=== PATIENT | male | born 1975 | race Caucasian/White ===

== ENCOUNTER 2020-07-23 17:15 | Outpatient (REF) | payer OTHER, SELFPAY ==
[2020-07-23 17:39] LABS: Glucose Urine UA NEG (NEG); Leukocyte Esterase Urine NEG (NEG); Nitrite Urine NEG (NEG); Specific Gravity - Urine 1.025 (1.005-1.025); Urine Blood NEG (NEG); Urine Ketones NEG (NEG); Urine Protein NEG (NEG-TRACE)
[2020-07-23 17:45] LABS: Appearance Urine CLEAR; Color Urine YELLOW
== END 2020-07-23 17:16 | disposition home or self-care (01) ==
LOC: HO.LNP 17:15
PROVIDERS: Visit Provider Family Medicine
DX: Z00.00 Encounter for general adult medical examination without abnormal findings (principal); R30.0 Dysuria
CPT/HCPCS: 81003; 87086; 87088

== ENCOUNTER 2020-09-18 07:13 | Outpatient (REF) | payer OTHER, SELFPAY ==
[2020-09-18 11:18] LABS: Alanine Aminotransferase 39 U/L (0-40); Albumin Level 4.3 g/dL (3.5-5.0); Alkaline Phosphatase 121 U/L (39-117); Anion Gap 11 (12-20); Aspartate Amino Transferase 25 U/L (5-37); Bilirubin Total 0.5 mg/dL (0.0-1.0); Blood Urea Nitrogen 10 mg/dL (9-16); Calcium 9.4 mg/dL (8.4-10.2); Carbon Dioxide 32 mmol/L (22-29); Chloride 101 mmol/L (96-108); Cholesterol 158 mg/dL; Estimated Glomerular Filt Rate > 60; Glucose Fasting 96 mg/dL (60-99); HDL Cholesterol 39 mg/dL; LDL Cholesterol Calculated 98 mg/dl; Potassium 3.8 mmol/L (3.3-5.1); Sodium 140 mmol/L (135-145); Total Protein 7.1 g/dL (6.5-8.0); Triglycerides 109 mg/dL
[2020-09-18 11:40] LABS: TSH reflex Free T4 0.48 uIU/mL (0.32-4.0)
== END 2020-09-18 07:14 | disposition home or self-care (01) ==
LOC: HO.WFDLDS 07:13
PROVIDERS: Visit Provider Family Medicine
DX: Z00.00 Encounter for general adult medical examination without abnormal findings (principal)
CPT/HCPCS: 36415; 80053; 80061; 84443

== ENCOUNTER 2020-12-18 14:55 | Outpatient (REF) | payer OTHER, SELFPAY ==
[2020-12-18 16:57] LABS: Appearance Urine HAZY; Color Urine DK YELLOW; Glucose Urine UA NEG (NEG); Leukocyte Esterase Urine 1+ (NEG); Nitrite Urine NEG (NEG); Urine Blood NEG (NEG); Urine Ketones NEG (NEG); Urine Protein NEG (NEG-TRACE)
[2020-12-18 17:32] LABS: Prostate Specific Antigen Scr 0.08 ng/mL (<0.05-4.0)
[2020-12-18 17:46] LABS: Amorphous Sediment Urine 2+ /LPF; Bacteria Urine 2+ /LPF; Mucus Urine 1+ /LPF; Squamous Epithelial Cell Urine 2+ /LPF
[2020-12-18 17:47] LABS: RBC Urine 0 /HPF (0)
== END 2020-12-18 14:56 | disposition home or self-care (01) ==
LOC: HO.HMGCLDS 14:55
PROVIDERS: PCP Family Medicine; Visit Provider Family Medicine
DX: Z12.5 Encounter for screening for malignant neoplasm of prostate (principal); Z13.9 Encounter for screening, unspecified
CPT/HCPCS: 36415; 81001; 84153

== ENCOUNTER 2020-12-19 18:18 | Outpatient (REF) | payer OTHER, SELFPAY ==
[2020-12-19 18:32] LABS: Appearance Urine CLEAR; Color Urine YELLOW; Glucose Urine UA NEG (NEG); Leukocyte Esterase Urine NEG (NEG); Nitrite Urine NEG (NEG); PH 8.5 (5.0-8.0); Urine Blood NEG (NEG); Urine Ketones NEG (NEG); Urine Protein TRACE MG/DL (NEG-TRACE)
== END 2020-12-19 18:19 | disposition home or self-care (01) ==
LOC: HO.LNP 18:18
PROVIDERS: Visit Provider Family Medicine
DX: Z00.00 Encounter for general adult medical examination without abnormal findings (principal); R30.0 Dysuria; R39.11 Hesitancy of micturition
CPT/HCPCS: 81003; 87086; 87088

== ENCOUNTER 2022-11-18 16:01 | Outpatient (AMB) | payer OTHER, SELFPAY ==
[2022-11-18 16:08] VITALS: BP 130/78; PULSE 71; TEMP 36.6; O2SAT 93; BMI 41.7
--- NOTE | 2022-11-18 16:08 | A.OFFPC_ITS ---
Vital Signs 11/18/22 16:08 Height 5 ft 10 in Weight 291 lb BMI 41.7 BP 130/78 Blood Pressure Location Lt brachial Position Sitting Pulse 71 Pulse Source Pulse Oximeter Temp 97.9 F Temp Source Oral Pulse Oximetry (%) 93 Oxygen Delivery Method Room Air Oxygen Flow Rate 97.9 Intake Visit Reasons: CPE with f/u labs and health maintenance Intake Note: Patient is here for his physical today. He's concerned about shortness of breath, and raspy breath. Allergies aspirin [ASPIRIN] Allergy (Unknown, Verified 11/18/22 16:13) HIVES/SWOLLEN THROAT, hives ibuprofen Allergy (Unknown, Verified 11/18/22 16:13) hives naproxen [Aleve] Allergy (Unknown, Verified 11/18/22 16:13) hives penicillin V Allergy (Unknown, Verified 11/18/22 16:13) hives propranolol Allergy (Unknown, Verified 11/18/22 16:13) erectile dysfunction NSAIDS Allergy (Unknown, Uncoded 11/18/22 16:13) Unknown Tobacco use date assessed: 11/18/22 Dental Screening Dental Screen Date: 11/18/22 Did you have a dental visit in the last 12 months?: No Did you have a dental problem in the last 6 months where you did not have access to dental care?: No Was dental information given to patient?: Patient declined HPI CPE with f/u labs and health maintenance HPI Details 46 y/o male presents for a CPE with f/u labs and health maintenance. No recent labs to review. Pt reports he is concerned about shortness of breath today. Pt reports hx of smoking. Pt reports GERD more than once a week. [facility] Surgical History Cholesteatoma of attic, right ear History of mastoidectomy History of tonsillectomy and adenoidectomy History of tympanoplasty of left ear Social History Housing: House Alcohol intake: never Patient Tobacco Use Status: Current everyday Tobacco user Cigarette Packs Per Day: 1 e-Cigarette/Vaping Use: Never Used Second Hand Smoke Exposure: No service: No Current occupational status: employed Current occupational exposures/hazards: No Cognitive needs: No Hearing needs: No Vision needs: No Questionnaire Thrive Questionnaire Date Thrive assessed: 12/19/20 MONA-7 AMB Questionnaire MONA-7 Date MONA - 7 assessed: 12/19/20 Source: Developed by Drs. Melo Sanches, Candice Tapia, Anibal Peng and colleagues, with an educational eboni from [employer]. Review of Systems Const Denies chills, Denies fatigue, Denies fever(s), Denies headache(s) and Denies weakness Eyes Denies change in vision ENT Denies dizziness, Denies headache(s), Denies hearing loss, Denies nasal congestion, Denies sinus pain, Denies sinus pressure and Denies sore throat Card Reports dyspnea Resp Reports dyspnea and Denies wheezing GI Denies abdominal pain, Denies melena, Denies hematochezia, Denies change in bowel habits, Denies dyspepsia and Denies nausea Denies hematuria and Denies dysuria Musc Denies abnormal gait, Denies myalgias, Denies arthralgias, Denies numbness and Denies tingling Skin/Breast Denies rash, Denies unusual bruising and Denies wounds Neuro Denies abnormal gait, Denies dizziness, Denies headache(s), Denies memory loss, Denies numbness, Denies Sensory deficit (Neuro), Denies tingling and Denies weakness Psych Denies anxiety, Denies depression and Denies memory loss Endo Denies cold intolerance, Denies fatigue, Denies heat intolerance, Denies polydipsia and Denies polyuria Deep/Lymph Denies easy bleeding and Denies easy bruising Aller/Immun Denies wheezing Physical exam (Primary Care) Vital Signs: Last Vital Signs Temp 97.9 F 11/18/22 16:08 Pulse 71 11/18/22 16:08 BP 130/78 11/18/22 16:08 Pulse Ox 93 11/18/22 16:08 Oxygen Delivery Method Room Air 11/18/22 16:08 Oxygen Flow Rate 97.9 11/18/22 16:08 BMI result Body Mass Index 41.7 Tobacco/Smoking Status: Tobacco use Status Tobacco use date assessed 11/18/22 11/18/22 16:22 Patient Tobacco Use Status Current everyday Tobacco 11/18/22 16:22 e-Cigarette/Vaping Use Never Used 11/18/22 16:22 Thrive Assessment: Date of Thrive Assessment Date Thrive assessed 12/19/20 11/18/22 16:22 Const General: no acute distress, well developed, alert and awake Nutritional Appearance: well nourished Orientation/consciousness: patient oriented x3 HENMT Head: Yes normocephalic and Yes atraumatic Ears: hearing grossly normal bilaterally and TM's normal bilaterally General nose exam: Normal external nose present and Normal nares present Mouth: Normal oral and palatal mucosa present and moist mucous membranes Teeth and gingiva: dentition normal Throat: Yes posterior oropharynx normal Eyes General: appearance normal, both eyes and all related structures Pupils: Equal, round and reactive pupils present and Pupil accommodation reflex normal EOM: EOMs intact bilaterally Neck Neck: Yes normal visual inspection, Yes no lymphadenopathy and Yes trachea midline Thyroid: Thyroid normal Carotids: no bruits Lymphatic: no lymphadenopathy noted Chest Chest palpation & inspection: normal inspection of the chest Resp Other: wheezing bilaterally and pops/squeaks at right base Effort & Inspection: normal respiratory effort Cardio Rate: regular rate Rhythm: regular rhythm Heart sounds: S1 normal heart sound present, S2 normal heart sound present, no gallops, no murmurs and no rubs Bruits: no abdominal aortic bruits and no carotid bruits GI Palpation (GI): No Abdominal aortic bruit present, Soft to palpation, nontender, No hepatosplenomegaly present and No Rebound tenderness present Auscultation: normal bowel sounds General: Yes no CVA tenderness Back/Spine/Pelvis Back: no CVA tenderness Cervical Spine: cervical ROM normal and No Cervical spine tenderness Thoracic/Lumbar Spine: thoraco-lumbar ROM normal, No pain with thoraco-lumbar ROM, No thoracic spinal tenderness and No lumbar spinal tenderness Skin Lesions: no lesions Rashes: no rashes Trauma: no lacerations or abrasions Wounds: no wounds Nails: normal Neuro General: patient oriented x3 Cranial nerves: Yes Equal, round and reactive pupils present Cognition (Neuro): normal cognition Gait exam (Neuro): Normal gait present Motor exam (neuro): 5/5 motor strength present throughout Sensory Exam: No Sensory deficit (Neuro) Deep tendon reflexes (DTR's): Right patellar reflex intensity grade: 2+ and Left patellar reflex intensity grade: 2+ Extrem General: Yes normal to inspection and No edema Psych Appearance: grossly normal Affect: normal affect Attitude: cooperative Thought process: Normal thought process present Assessment and Plan Assessment & Plan (1) Adult general medical exam: Code(s): Z00.00 - Encounter for general adult medical examination without abnormal findings Plan: 46-year-old male presents for complete physical exam (2) Shortness of breath: Code(s): R06.02 - Shortness of breath Plan: Recent worsening shortness of breath and cough. Lung auscultation reveals wheezing bilaterally and pops/squeaks at right base Likely asthma exacerbation but concern for pneumonia Checking chest x-ray Refilled his ProAir Sending a script for a Z-Elliott as well as 5 day course of prednisone. He can call me if not improving. (3) Essential hypertension: Code(s): I10 - Essential (primary) hypertension Plan: Blood pressure is controlled. Goal is less than 140/90 Continue hydrochlorothiazide which also helps with lower extremity edema (4) GERD (gastroesophageal reflux disease): Code(s): K21.9 - Gastro-esophageal reflux disease without esophagitis Plan: Getting symptoms more than once a week. Starting omeprazole and I am referring him to Gastroenterology (5) History of smoking: Code(s): Z87.891 - Personal history of nicotine dependence Plan: Advised cessation Checking chest x-ray (6) Screening for prostate cancer: Code(s): Z12.5 - Encounter for screening for malignant neoplasm of prostate Plan: Check PSA (7) Screening for colon cancer: Code(s): Z12.11 - Encounter for screening for malignant neoplasm of colon Plan: Due for 1st screening colonoscopy-referred to GI Orders: Orders Comprehensive [place]. Panel Fast Today Z00.00 - Encounter for general adult medical examination without abnormal findings Lipid Panel Today Z00.00 - Encounter for general adult medical examination without abnormal findings Prostate Specific Antigen Scr Today Z12.5 - Encounter for screening for malignant neoplasm of prostate TSH reflex Free T4 Today Z00.00 - Encounter for general adult medical examination without abnormal findings Microalbumin, Random (w Creat) Today I10 - Essential (primary) hypertension UA and rflx microscopic Today Z00.00 - Encounter for general adult medical examination without abnormal findings XR chest 2V Today R06.02 - Shortness of breath Referrals Gastroenterology Referral K21.9 - Gastro-esophageal reflux disease without esophagitis, Z12.11 - Encounter for screening for malignant neoplasm of colon Medications: New azithromycin (Zithromax Z-Elliott) take 500 mg today (day 1), then 250 mg for 4 days (days 2-5) PO 6 tabs 0RF 5 days prednisone 40 mg (2 x 20 mg) PO DAILY 10 tabs 0RF 5 days albuterol sulfate 90 mcg/actuation (ProAir HFA) 2 puffs inhalation Q4-6H PRN 8.5 grams 3RF shortness of breath or wheezing 30 days Coding Level of Care Code Est Pt Level 3 (41147) Est Pt Prev Care 40-64y(52996) Diagnoses Adult general medical exam Z00.00 Shortness of breath R06.02 Essential hypertension I10 GERD (gastroesophageal reflux disease) K21.9 History of smoking Z87.891 Screening for prostate cancer Z12.5 Screening for colon cancer Z12.11
== END 2022-11-18 17:03 | disposition home or self-care (01) ==
PROVIDERS: Visit Provider Family Medicine
DX: Z00.00 Encounter for general adult medical examination without abnormal findings (principal); R06.02 Shortness of breath; I10 Essential (primary) hypertension; K21.9 Gastro-esophageal reflux disease without esophagitis; Z87.891 Personal history of nicotine dependence
CPT/HCPCS: 99213; 99396

== ENCOUNTER 2022-11-21 09:09 | Outpatient (REF) | payer OTHER, SELFPAY ==
--- NOTE | ~2022-11-21 | XR_ITS ---
EXAMINATION: XR CHEST CLINICAL INFORMATION: Shortness of breath, cough COMPARISON: Chest of 06/04/2014 TECHNIQUE: 2 views of the chest were obtained. FINDINGS: Lung volumes are low. There is no gross pneumothorax. Heart size is normal. Degenerative changes in the thoracic spine. No pleural effusion. Streaky opacities at the left lung base may represent atelectasis and/or pneumonia. XR/XR chest 2V IMPRESSION: Streaky opacities at the left lung base may represent atelectasis and/or pneumonia. Low lung volumes. Recommend follow-up imaging in 4-6 weeks to confirm resolution and exclude underlying pathology. This study was presented to 11/23/2022 11/15/2022 at 12:19 PM for interpretation. PSA staff will provide results to referring provider at this time.
[2022-11-21 10:23] LABS: Appearance Urine Turbid; Color Urine Dark Yellow; Glucose Urine UA Negative (Negative); Leukocyte Esterase Urine Moderate (2+) (Negative); Nitrite Urine Negative (Negative); PH 6.5 (5.0-9.0); Specific Gravity - Urine >= 1.030 (1.005-1.025); UMIC TRIGGER UA YES; Urine Blood Negative (Negative); Urine Ketones Trace mg/dL (Negative); Urine Protein 30 (1+) mg/dL (Neg-Trace)
[2022-11-21 10:42] LABS: Creatinine Urine 208.88 mg/dL; Microalbum/Creatinine Ratio Ur 10.5 ug/mg cr (<30)
[2022-11-21 10:50] LABS: Alanine Aminotransferase 24 U/L (0-40); Albumin Level 4.4 g/dL (3.5-5.0); Alkaline Phosphatase 103 U/L (39-117); Anion Gap 13 (12-20); Aspartate Amino Transferase 16 U/L (5-37); Bilirubin Total 0.6 mg/dL (0.0-1.0); Blood Urea Nitrogen 11 mg/dL (9-16); Calcium 9.8 mg/dL (8.4-10.2); Carbon Dioxide 31 mmol/L (22-29); Chloride 102 mmol/L (96-108); Cholesterol 139 mg/dL (<200); Estimated Glomerular Filt Rate > 60; Glucose Fasting 90 mg/dL (60-99); HDL Cholesterol 40 mg/dL (>40); LDL Cholesterol Calculated 88 mg/dL (<100); Potassium 3.6 mmol/L (3.3-5.1); Sodium 142 mmol/L (135-145); Total Protein 7.8 g/dL (6.5-8.0); Triglycerides 55 mg/dL (<150)
[2022-11-21 10:58] LABS: Bacteria Urine 4+ (None Seen); Hyaline Casts Urine 0-2 /LPF (0-2); RBC Urine 0-2 /HPF (0-2); Squamous Epithelial Cell Urine 0-2 /HPF (0-2)
[2022-11-21 11:06] LABS: Prostate Specific Antigen Scr < 0.10 ng/mL (<0.05-4.0)
== END 2022-11-21 09:10 | disposition home or self-care (01) ==
LOC: HO.LAB 09:09
PROVIDERS: PCP Family Medicine; Visit Provider Family Medicine
DX: Z00.00 Encounter for general adult medical examination without abnormal findings (principal); Z12.5 Encounter for screening for malignant neoplasm of prostate; R06.02 Shortness of breath; I10 Essential (primary) hypertension
CPT/HCPCS: 36415; 71046; 80053; 80061; 81001; 82043; 84153; 84439; 84443

== ENCOUNTER 2022-12-08 13:39 | Outpatient (AMB) | payer OTHER, SELFPAY ==
--- NOTE | 2022-12-08 13:05 | MHC.PC.OV ---
Intake Visit Reasons: f/u CPE-labs and chest x-ray Intake Note: Patient reports he has a telehealth scheduled to discuss labs and most recent chest xray. [employer] Required: No Accompanied by: Self / Same As Patient Allergies aspirin [ASPIRIN] Allergy (Unknown, Verified 12/08/22 13:09) HIVES/SWOLLEN THROAT, hives ibuprofen Allergy (Unknown, Verified 12/08/22 13:09) hives naproxen [Aleve] Allergy (Unknown, Verified 12/08/22 13:09) hives penicillin V Allergy (Unknown, Verified 12/08/22 13:09) hives propranolol Allergy (Unknown, Verified 12/08/22 13:09) erectile dysfunction NSAIDS Allergy (Unknown, Uncoded 11/18/22 16:13) Unknown Tobacco use date assessed: 11/18/22 HPI f/u CPE-labs and chest x-ray HPI Details 46 y/o male presents to f/u CPE-labs and chest x-ray. Had complaints of a cough last office visit. He reports cough has significantly improved after antibiotic treatment and prednisone. Labs were drawn 11/21/22. Reviewed labs with pt. Triglycerides 55. TC 139. LDL 88. HDL 40. TSH low at 0.20. PFSH Surgical History Cholesteatoma of attic, right ear History of mastoidectomy History of tonsillectomy and adenoidectomy History of tympanoplasty of left ear Social History Housing: House Alcohol intake: never Patient Tobacco Use Status: Current everyday Tobacco user Cigarette Packs Per Day: 1 e-Cigarette/Vaping Use: Never Used Second Hand Smoke Exposure: No service: No Current occupational status: employed Current occupational exposures/hazards: No Cognitive needs: No Hearing needs: No Vision needs: No Questionnaire Thrive Questionnaire Date Thrive assessed: 12/19/20 MONA-7 AMB Questionnaire MONA-7 Date MONA - 7 assessed: 12/19/20 Source: Developed by Drs. Melo Sanches, Candice Tapia, Anibal Peng and colleagues, with an educational eboni from [employer]. Review of Systems Const Denies chills, Denies fatigue, Denies fever(s), Denies headache(s) and Denies weakness ENT Denies dizziness and Denies headache(s) Card Denies dyspnea Resp Denies cough, Denies dyspnea, Denies wheezing and Denies other (shortness of breath) Musc Denies numbness and Denies tingling Neuro Denies dizziness, Denies headache(s), Denies numbness, Denies tingling and Denies weakness Psych Denies anxiety and Denies depression Endo Denies fatigue Aller/Immun Denies wheezing Physical exam (Primary Care) Tobacco/Smoking Status: Tobacco use Status Tobacco use date assessed 11/18/22 12/08/22 13:09 Patient Tobacco Use Status Current everyday Tobacco 12/08/22 13:09 e-Cigarette/Vaping Use Never Used 12/08/22 13:09 Thrive Assessment: Date of Thrive Assessment Date Thrive assessed 12/19/20 12/08/22 13:09 Telehealth Telehealth Location of provider rendering services: practice address Location of patient: other Patient Identification confirmed using: Name, : Yes Telehealth method: voice only Patient verbally consented to treatment: Yes Patient verbally consented to billing insurance company: Yes Patient informed of any privacy concerns related to visit: Yes Minutes spent on Phone/Video with Pt.: 7 Assessment and Plan Assessment & Plan (1) Cough: Code(s): R05.9 - Cough, unspecified Plan: Greatly improved and continues to improve after treatment with prednisone. Chest x-ray did show likely pneumonia He will continue to monitor. If this does not completely resolve or if begins to worsen, he will let me know Would repeat chest x-ray and start antibiotic course again. (2) Shortness of breath: Code(s): R06.02 - Shortness of breath Plan: As above (3) Low TSH level: Code(s): R79.89 - Other specified abnormal findings of blood chemistry Plan: Mildly low TSH and patient had had his blood drawn while he was still sick with pneumonia. Likely transient. He will have his blood drawn prior to next visit and we can follow-up on this. Orders: Orders Thyroid Stimulating Hormone Today E03.9 - Hypothyroidism, unspecified, R79.89 - Other specified abnormal findings of blood chemistry Free T4 (Free Thyroxine) Today E03.9 - Hypothyroidism, unspecified, R79.89 - Other specified abnormal findings of blood chemistry Triiodothyronine T3 Total Today E03.9 - Hypothyroidism, unspecified, R79.89 - Other specified abnormal findings of blood chemistry Basic Metabolic Panel Today R79.89 - Other specified abnormal findings of blood chemistry, Z00.00 - Encounter for general adult medical examination without abnormal findings Coding Level of Care Code Tele Est Pt Level 2 (57289) Diagnoses Cough R05.9 Shortness of breath R06.02 Low TSH level R79.89
== END 2022-12-08 14:21 | disposition home or self-care (01) ==
PROVIDERS: PCP Family Medicine; Visit Provider Family Medicine
DX: R05.9 Cough, unspecified (principal); R06.02 Shortness of breath; R79.89 Other specified abnormal findings of blood chemistry
CPT/HCPCS: 99212

== ENCOUNTER 2023-03-26 14:47 | Outpatient (AMB) | payer OTHER, SELFPAY ==
[2023-03-26 14:54] VITALS: BP 138/78; PULSE 71; O2SAT 98; BMI 43.6
--- NOTE | 2023-03-26 14:54 | A.OFFPC_ITS ---
Vital Signs 03/26/23 14:54 Height 5 ft 10 in Weight 304 lb BMI 43.6 BP 138/78 Blood Pressure Location Lt brachial Position Sitting Pulse 71 Pulse Source Pulse Oximeter Pulse Oximetry (%) 98 Oxygen Delivery Method Room Air Intake Visit Reasons: Follow-up hypertension and low TSH Intake Note: Patient is here to follow up on hypertension and thyroid. Allergies aspirin [ASPIRIN] Allergy (Unknown, Verified 03/26/23 14:58) HIVES/SWOLLEN THROAT, hives ibuprofen Allergy (Unknown, Verified 03/26/23 14:58) hives naproxen [Aleve] Allergy (Unknown, Verified 03/26/23 14:58) hives penicillin V Allergy (Unknown, Verified 03/26/23 14:58) hives propranolol Allergy (Unknown, Verified 03/26/23 14:58) erectile dysfunction NSAIDS Allergy (Unknown, Uncoded 03/26/23 14:58) Unknown Tobacco use date assessed: 03/26/23 HPI Follow-up hypertension and low TSH HPI Details 47 y/o male presents to f/u hypertension . No recent labs to review for his TSH. Blood pressure today 138/78. He is on hydrochlorothiazide 25mg. [facility] Surgical History History of tonsillectomy and adenoidectomy History of tympanoplasty of left ear History of mastoidectomy Cholesteatoma of attic, right ear Social History Housing: House Alcohol intake: never Patient Tobacco Use Status: Current everyday Tobacco user Cigarettes Per Day: 7 e-Cigarette/Vaping Use: Never Used Second Hand Smoke Exposure: No service: No Current occupational status: employed Current occupational exposures/hazards: No Cognitive needs: No Hearing needs: No Vision needs: No Questionnaire Thrive Questionnaire Date Thrive assessed: 12/19/20 MONA-7 AMB Questionnaire MONA-7 Date MONA - 7 assessed: 12/19/20 Source: Developed by Drs. Melo Sanches, Candice Tapia, Anibal Peng and colleagues, with an educational eboni from [employer]. Review of Systems Const Denies chills, Denies fatigue, Denies fever(s), Denies headache(s) and Denies weakness ENT Denies dizziness and Denies headache(s) Card Denies dyspnea Resp Denies cough, Denies dyspnea, Denies wheezing and Denies other (shortness of breath) Musc Denies numbness and Denies tingling Neuro Denies dizziness, Denies headache(s), Denies numbness, Denies tingling and Denies weakness Psych Denies anxiety and Denies depression Endo Denies fatigue Aller/Immun Denies wheezing Physical exam (Primary Care) Vital Signs: Last Vital Signs Pulse 71 03/26/23 14:54 BP 138/78 03/26/23 14:54 Pulse Ox 98 03/26/23 14:54 Oxygen Delivery Method Room Air 03/26/23 14:54 BMI result Body Mass Index 43.6 Tobacco/Smoking Status: Tobacco use Status Tobacco use date assessed 03/26/23 03/26/23 15:00 Patient Tobacco Use Status Current everyday Tobacco 03/26/23 15:00 e-Cigarette/Vaping Use Never Used 03/26/23 15:00 Thrive Assessment: Date of Thrive Assessment Date Thrive assessed 12/19/20 03/26/23 15:00 Const General: well developed; No acute distress Nutritional Appearance: well nourished Orientation/consciousness: patient oriented x3 HENMT Head: Yes normocephalic and Yes atraumatic Eyes General: appearance normal, both eyes and all related structures Pupils: Equal, round and reactive pupils present EOM: EOMs intact bilaterally Resp Effort & Inspection: normal respiratory effort Auscultation: clear to auscultation bilaterally Cardio Rate: regular rate Rhythm: regular rhythm Heart sounds: S1 normal heart sound present, S2 normal heart sound present, no gallops, no murmurs and no rubs Neuro General: patient oriented x3 and gait normal Cranial nerves: Yes Equal, round and reactive pupils present Psych Affect: normal affect Assessment and Plan Assessment & Plan (1) Essential hypertension: Code(s): I10 - Essential (primary) hypertension Plan: Blood?pressure?is?controlled?though?higher?than?last?check.??Goal?is?less?than?1 40/ No?change?to?current?medication. Advised?he?work?on?diet,?exercise,?weight?loss?and?salt/sodium?avoiding Had?gained?about?13?lb.??He?will?work?on?this. (2) Low TSH level: Code(s): R79.89 - Other specified abnormal findings of blood chemistry Plan: TSH?had?been?low?but?patient?had?had?a?pneumonia He?did?not?get?his?labs?drawn?to?recheck?this?but?will?do?so?in?the?next?week?or ?so.??We?can?follow-up?in?about?a?month?by?telemedicine. Coding Level of Care Code Est Pt Level 3 (50293) Diagnoses Essential hypertension I10 Low TSH level R79.89
== END 2023-03-26 15:46 | disposition home or self-care (01) ==
PROVIDERS: PCP Family Medicine; Visit Provider Family Medicine
DX: I10 Essential (primary) hypertension (principal); R79.89 Other specified abnormal findings of blood chemistry
CPT/HCPCS: 99213

== ENCOUNTER 2023-04-07 14:28 | Outpatient (AMB) | payer OTHER, SELFPAY ==
--- NOTE | 2023-04-07 14:31 | A.OFFVIS_ITS ---
Intake Vital Signs 04/07/23 14:34 Height 5 ft 10 in Weight 279 lb 15.793 oz BMI 40.2 BP 165/83 H Blood Pressure Location Lt brachial Position Sitting Pulse 71 Intake Visit Reasons: GERD and [place] Screening Intake Note: Ant presents in the office as a new patient for a colo screening and GERD. CC: Reflux intermittent pains in the left flank that has been happening for years. He states he has both constipation and diarrhea. 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 male here today for pre col onoscopy screening.? Patient was sent to us by his PCP.? ?This is his first colonoscopy screening. ??Patient denies any gastrointestinal symptoms in the past or at present.? However patient does report to have occasional acid reflux. Patient also reports that he is not moving his bowels daily. Sometimes no bowel movement for 3-4 days. Patient did use MiraLax in the past as well as Dulcolax tablets. Denies any personal or family history of gastrointestinal disease, colon polyps, or cancer.? Denies history of difficulty with sedation or anesthesia in the past.? Patient was diagnosed with sleep apnea, unable to tolerate CPAP machine.? Denies any history of cardiac, renal, pulmonary, or hepatic disease.?? No history of infectious ?diseases like hepatitis A, B, C, HIV or tuberculosis.? Patient is not on any anticoagulation therapy [facility] Surgical History History of tonsillectomy and adenoidectomy History of tympanoplasty of left ear History of mastoidectomy Cholesteatoma of attic, right ear Social History Housing: House Alcohol intake: never Patient Tobacco Use Status: Current everyday Tobacco user Cigarettes Per Day: 7 e-Cigarette/Vaping Use: Never Used Second Hand Smoke Exposure: No service: No Current occupational status: employed Current occupational exposures/hazards: No Cognitive needs: No Hearing needs: No Vision needs: No Review of Systems Const Denies weight gain and Denies weight loss ENT Reports no additional complaints, Denies dysphagia and Denies odynophagia Card Reports no additional complaints Resp Reports no additional complaints GI Denies abdominal pain, Denies belching, Denies melena, Denies bloating, Denies change in bowel habits, Reports constipation, Denies dysphagia, Denies excessive flatus, Denies dyspepsia, Reports heartburn (Occasional), Denies diarrhea, Denies loose stools, Denies nausea, Denies odynophagia and Denies vomiting Reports no additional complaints Musc Reports no additional complaints Neuro Reports no additional complaints Psych Reports no additional complaints Endo Reports no additional complaints Physical Exam Vital Signs: Last Vital Signs Pulse 71 04/07/23 14:34 BP 165/83 H 04/07/23 14:34 BMI result Body Mass Index 40.2 Const General: healthy appearing, no acute distress and well developed Nutritional Appearance: obese Orientation/consciousness: patient oriented x3 Resp Effort & Inspection: normal respiratory effort, able to speak in complete sentences, no tracheal deviation and symmetric chest movement Auscultation: clear to auscultation bilaterally Cardio Rate: regular rate GI Inspection: Yes normal to inspection, No distended and Yes obesity Palpation (GI): Soft to palpation, not firm, nontender and No hepatosplenomegaly present Auscultation: normal bowel sounds General: Yes no CVA tenderness Back/Spine/Pelvis Back: no CVA tenderness Skin General skin exam: elasticity normal, turgor normal and dry skin Neuro General: patient oriented x3 Psych Appearance: grossly normal Mental Status: mental status grossly normal Assessment & Plan Assessment & Plan (1) GERD (gastroesophageal reflux disease): Code(s): K21.9 - Gastro-esophageal reflux disease without esophagitis Qualifiers: Esophagitis presence: esophagitis presence not specified Qualified Code(s): K21.9 - Gastro-esophageal reflux disease without esophagitis (2) Screening for colon cancer: Code(s): Z12.11 - Encounter for screening for malignant neoplasm of colon (3) Constipation: Code(s): K59.00 - Constipation, unspecified Qualifiers: Constipation type: slow transit constipation Qualified Code(s): K59.01 - Slow transit constipation Plan Patient denies any cardiac or respiratory symptoms.? Symptoms of acid reflux, patient takes omeprazole on as needed basis. Patient reports to be constipated. Patient states that he has been dealing with this for very long time food occasionally takes MiraLax or Dulcolax. Will send patient script for Dulcolax. History of sleep apnea, unable to tolerate CPAP. Denies any issues with anesthesia in the past.? No history infectious diseases in the past or present.? Not on any anticoagulation therapy.? No family or personal history of colon cancer or polyps.? Patient denies melena, hematochezia, unintentional weight loss or ribbon like stools.? Discussed at length the pre-procedure,? prep, diet & medications as well as what to expect prior, during and after the procedure.?? Stressed the importance of good bowel prep. ?Recommended the use of Vaseline or Calmoseptine OTC & baby wipes with bowel movements to promote comfort.? ?Patient verbalizes understanding and agrees to plan of care.? He was given the opportunity to ask questions and all questions answered.? We will see him after the procedure.? Medications: New bisacodyl (Dulcolax (bisacodyl)) 10 mg (2 x 5 mg) PO BEDTIME 180 tabs 4RF polyethylene glycol 3350 (Miralax) As directed by gastro[facility]ology department at [facility] 238 grams PO ONCE 238 grams 0RF Z12.11 - Encounter for screening for malignant neoplasm of colon Coding Level of Care Code New Pt Level 3 (70760) Diagnoses Gastroesophageal reflux disease, unspecified whether esophagitis present K21.9 Esophagitis presence: esophagitis presence not specified Screening for colon cancer Z12.11 Slow transit constipation K59.01 Constipation type: slow transit constipation Time Spent (min) 40 Comment 30 minutes spent with patient and additional 10 minutes spent reviewing his records
[2023-04-07 14:34] VITALS: BP 165/83; PULSE 71; BMI 40.2
== END 2023-04-07 15:54 | disposition home or self-care (01) ==
PROVIDERS: PCP Family Medicine; Visit Provider Nurse Practitioner Family
DX: K21.9 Gastro-esophageal reflux disease without esophagitis (principal); Z12.11 Encounter for screening for malignant neoplasm of colon; K59.01 Slow transit constipation
CPT/HCPCS: 99203

== ENCOUNTER → 2023-04-07 14:28 | Outpatient (BNVA) | payer OTHER, SELFPAY | PROVIDERS: PCP Family Medicine; Visit Provider Nurse Practitioner Family ==

== ENCOUNTER 2023-04-29 06:42 | Outpatient (REF) | payer OTHER, SELFPAY ==
[2023-04-29 11:27] LABS: Appearance Urine Clear; Color Urine Dark Yellow; Glucose Urine UA Negative (Negative); Leukocyte Esterase Urine Negative (Negative); Nitrite Urine Negative (Negative); PH 7.5 (5.0-9.0); Urine Blood Negative (Negative); Urine Ketones Negative (Negative); Urine Protein Negative (Neg-Trace)
[2023-04-29 12:13] LABS: Blood Urea Nitrogen 8 mg/dL (9-16); Calcium 9.5 mg/dL (8.4-10.2); Estimated Glomerular Filt Rate > 60; Glucose Random 83 mg/dL (60-115)
[2023-04-29 12:15] LABS: Anion Gap 14 (12-20); Carbon Dioxide 30 mmol/L (22-29); Chloride 98 mmol/L (96-108); Potassium 2.8 mmol/L (3.3-5.1); Sodium 139 mmol/L (135-145)
[2023-04-29 12:34] LABS: Free T4 (Free Thyroxine) 1.28 ng/dL (0.71-1.85); Thyroid Stimulating Hormone 0.81 uIU/mL (0.32-4.0)
[2023-04-30 10:28] LABS: Triiodothyronine T3 Total 177 ng/dL (76-181)
== END 2023-04-29 06:43 | disposition home or self-care (01) ==
LOC: HO.HMGCLDS 06:42
PROVIDERS: PCP Family Medicine; Visit Provider Family Medicine
DX: Z00.00 Encounter for general adult medical examination without abnormal findings (principal); E03.9 Hypothyroidism, unspecified; R79.89 Other specified abnormal findings of blood chemistry
CPT/HCPCS: 36415; 80048; 81003; 84439; 84443; 84480

== ENCOUNTER 2023-05-04 06:24 | Outpatient (REF) | payer OTHER, SELFPAY ==
[2023-05-04 12:06] LABS: Alanine Aminotransferase 34 U/L (0-40); Alkaline Phosphatase 104 U/L (39-117); Anion Gap 10 (12-20); Aspartate Amino Transferase 20 U/L (5-37); Bilirubin Total 0.7 mg/dL (0.0-1.0); Blood Urea Nitrogen 9 mg/dL (9-16); Calcium 9.4 mg/dL (8.4-10.2); Carbon Dioxide 34 mmol/L (22-29); Chloride 100 mmol/L (96-108); Estimated Glomerular Filt Rate > 60; Glucose Random 90 mg/dL (60-115); Potassium 3.7 mmol/L (3.3-5.1); Sodium 140 mmol/L (135-145); Total Protein 7.4 g/dL (6.5-8.0)
== END 2023-05-04 06:25 | disposition home or self-care (01) ==
LOC: HO.HMGCLDS 06:24
PROVIDERS: PCP Family Medicine; Visit Provider Family Medicine
DX: E87.6 Hypokalemia (principal)
CPT/HCPCS: 36415; 80053

== ENCOUNTER 2023-05-04 16:29 | Outpatient (AMB) | payer OTHER, SELFPAY ==
--- NOTE | 2023-05-04 16:16 | MHC.PC.OV ---
Intake Visit Reasons: f/u low TSH Intake Note: Patient is calling to follow up on his thyroid blood work. Patient is having cholestemoma, draniage coming out of right ear. Allergies aspirin [ASPIRIN] Allergy (Unknown, Verified 05/04/23 16:18) HIVES/SWOLLEN THROAT, hives ibuprofen Allergy (Unknown, Verified 05/04/23 16:18) hives naproxen [Aleve] Allergy (Unknown, Verified 05/04/23 16:18) hives penicillin V Allergy (Unknown, Verified 05/04/23 16:18) hives propranolol Allergy (Unknown, Verified 05/04/23 16:18) erectile dysfunction NSAIDS Allergy (Unknown, Uncoded 05/04/23 16:18) Unknown Tobacco use date assessed: 05/04/23 Dental Screening Dental Screen Date: 05/04/23 Did you have a dental visit in the last 12 months?: No Did you have a dental problem in the last 6 months where you did not have access to dental care?: No Was dental information given to patient?: No HPI f/u low TSH HPI Details 47 y/o male presents to f/u low TSH via telemedicine. Labs were drawn 05/04/23. Reviewed labs with pt. TSH levels 0.81 and was fine. [facility] Surgical History History of tonsillectomy and adenoidectomy History of tympanoplasty of left ear History of mastoidectomy Cholesteatoma of attic, right ear Social History Housing: House Alcohol intake: never Patient Tobacco Use Status: Current everyday Tobacco user Cigarettes Per Day: 7 e-Cigarette/Vaping Use: Never Used Second Hand Smoke Exposure: No service: No Current occupational status: employed Current occupational exposures/hazards: No Cognitive needs: No Hearing needs: No Vision needs: No Questionnaire PHQ-9 Over the last 2 weeks, how often have you been bothered by any of the following problems? 1. Little interest or pleasure in doing things: not at all 2. Feeling down, depressed, or hopeless: not at all 3. Trouble falling or staying asleep, or sleeping too much: not at all 4. Feeling tired or having little energy: not at all 5. Poor appetite or overeating: not at all 6. Feeling bad about yourself - or that you are a failure or have let yourself or your family down: not at all 7. Trouble concentrating on things, such as reading the newspaper or watching television: not at all 8. Moving or speaking so slowly that other people could have noticed. Or the opposite - being so fidgety or restless that you have been moving around a lot more than usual: not at all 9. Thoughts that you would be better off or of hurting yourself in some way: not at all Total score: 0 Source: Developed by Drs. Melo Sanches, Candice Tapia, Anibal Peng and colleagues, with an educational eboni from [employer]. Thrive Questionnaire Date Thrive assessed: 05/04/23 I am a: Patient What is your living situation today?: I have a steady place to live Within the past 12 months, did the food you bought not last and you didn't have the money to get more?: Never true Within the past 12 months, did you worry whether your food would run out before you got money to buy more?: Never true Do you have trouble paying for medicines?: No Do you have trouble getting transportation to medical appointments?: No Do you have trouble paying your heating and electricity bill?: No Do you have trouble taking care of your child, family member or friend?: No Do you have trouble with day-to-day activities such as bathing, preparing meals, shopping, managing finances, etc.?: No Are you currently unemployed and looking for a job?: No Are you interested in more education?: No THRIVE Score: 0 AUDIT C Alcohol Use Questionnaire (AUDIT-C) 1. How often do you have a drink containing alcohol?: Never 3. How often do you have six or more drinks on one occasion?: Never Total Score: 0 MONA-7 AMB Questionnaire MONA-7 Date MONA - 7 assessed: 05/04/23 Feeling nervous, anxious, or on edge: 1 = Several days Not being able to stop or control worryin = Not at all Worrying too much about different things: 0 = Not at all Trouble relaxin = Not at all Being so restless that it is hard to sit still: 0 = Not at all Becoming easily annoyed or irritable: 0 = Not at all Feeling afraid as if something awful might happen: 0 = Not at all Total MONA-7 score (0-4 normal; 5-9 mild; 10-14 moderate; 15-21 severe): 1 Source: Developed by Drs. Melo Sanches, Candice Tapia, Anibal Peng and colleagues, with an educational eboni from [employer]. Review of Systems Const Denies chills, Denies fatigue, Denies fever(s), Denies headache(s) and Denies weakness ENT Denies dizziness and Denies headache(s) Card Denies dyspnea Resp Denies cough, Denies dyspnea, Denies wheezing and Denies other (shortness of breath) Musc Denies numbness and Denies tingling Neuro Denies dizziness, Denies headache(s), Denies numbness, Denies tingling and Denies weakness Psych Denies anxiety and Denies depression Endo Denies fatigue Aller/Immun Denies wheezing Physical exam (Primary Care) Tobacco/Smoking Status: Tobacco use Status Tobacco use date assessed 05/04/23 05/04/23 16:23 Patient Tobacco Use Status Current everyday Tobacco 05/04/23 16:23 e-Cigarette/Vaping Use Never Used 05/04/23 16:23 PHQ-9: PHQ-9 Score PHQ-9: Total score 0 05/04/23 16:56 Thrive Assessment: Date of Thrive Assessment Date Thrive assessed 05/04/23 05/04/23 16:26 Telehealth Telehealth Location of provider rendering services: practice address Location of patient: address on file Patient Identification confirmed using: Name, : Yes Telehealth method: voice only Patient verbally consented to treatment: Yes Patient verbally consented to billing insurance company: Yes Patient informed of any privacy concerns related to visit: Yes Minutes spent on Phone/Video with Pt.: 5 Assessment and Plan Assessment & Plan (1) Hypokalemia: Code(s): E87.6 - Hypokalemia Plan: Had?sent?patient?a?script?for?potassium.??He?was?unable?to?pick?this?up?but?he?picked?up?an?wdcn-squ-xrackoc?potassium?and?his?potassium?level?is?now?back?in?the?normal?range He?will?continue?this Will?recheck?prior?to?his?next?visit (2) Low TSH level: Code(s): R79.89 - Other specified abnormal findings of blood chemistry Plan: TSH?was?mildly?suppressed?but?he?had?mentioned?that?he?had?been?sick?prior?to?lab?work. Repeat?TSH?and?T4/T3?were?all?within?normal?limits. Orders: Orders Comprehensive Met. Panel Today E87.6 - Hypokalemia Coding Level of Care Code Tele Est Pt Level 2 (51579) Diagnoses Hypokalemia E87.6 Low TSH level R79.89
== END 2023-05-04 17:00 ==
LOC: HO.HMGFM 16:29
PROVIDERS: PCP Family Medicine; Visit Provider Family Medicine
DX: E87.6 Hypokalemia (principal); R79.89 Other specified abnormal findings of blood chemistry
CPT/HCPCS: 99212

== ENCOUNTER 2024-01-24 07:09 | Outpatient (REF) | payer OTHER, SELFPAY ==
[2024-01-24 10:29] LABS: Alanine Aminotransferase 33 U/L (0-40); Albumin Level 4.3 g/dL (3.5-5.0); Alkaline Phosphatase 141 U/L (39-117); Anion Gap 10 (12-20); Aspartate Amino Transferase 27 U/L (5-37); Bilirubin Total 0.7 mg/dL (0.0-1.0); Blood Urea Nitrogen 9 mg/dL (9-16); Calcium 9.5 mg/dL (8.4-10.2); Carbon Dioxide 33 mmol/L (22-29); Chloride 99 mmol/L (96-108); Estimated Glomerular Filt Rate > 60; Glucose Random 104 mg/dL (60-115); Potassium 3.8 mmol/L (3.3-5.1); Sodium 138 mmol/L (135-145); Total Protein 7.7 g/dL (6.5-8.0)
== END 2024-01-24 07:10 | disposition home or self-care (01) ==
LOC: HO.HMGCLDS 07:09
PROVIDERS: PCP Family Medicine; Visit Provider Family Medicine
DX: E87.6 Hypokalemia (principal)
CPT/HCPCS: 36415; 80053

== ENCOUNTER 2024-01-25 10:26 | Outpatient (AMB) | payer OTHER, SELFPAY ==
--- NOTE | 2024-01-25 10:32 | A.OFFPC_ITS ---
Vital Signs 01/25/24 10:34 Height 5 ft 10 in Weight 310 lb 8 oz BMI 44.5 BP 143/72 H Blood Pressure Location Lt brachial Position Sitting Respiration 14 Pulse 83 Pulse Source Pulse Oximeter Temp 97.7 F Temp Source Temporal Artery Scan Pulse Oximetry (%) 96 Oxygen Delivery Method Room Air Intake Visit Reasons: 3 month f/u in july for f/u htn and hyperkalemia Intake Note: f/u for HTN and labs Allergies aspirin [ASPIRIN] Allergy (Unknown, Verified 01/25/24 10:34) HIVES/SWOLLEN THROAT, hives ibuprofen Allergy (Unknown, Verified 01/25/24 10:34) hives naproxen [Aleve] Allergy (Unknown, Verified 01/25/24 10:34) hives penicillin V Allergy (Unknown, Verified 01/25/24 10:34) hives propranolol Allergy (Unknown, Verified 01/25/24 10:34) erectile dysfunction NSAIDS Allergy (Unknown, Uncoded 05/04/23 16:18) Unknown Medication List - Last Reconciled 01/25/24 by Diego Bajwa MD albuterol sulfate 90 mcg/actuation (ProAir HFA) 2 puffs inhalation Q4-6H PRN 30 days bisacodyl (Dulcolax (bisacodyl)) 10 mg (2 x 5 mg) PO BEDTIME fluoxetine 10 mg PO DAILY 90 days hydrochlorothiazide 25 mg PO QAM 90 days omeprazole 20 mg PO DAILY 30 days polyethylene glycol 3350 (Miralax) 238 grams PO ONCE potassium gluconate 550 mg PO .QOD 30 days Tobacco use date assessed: 05/04/23 Dental Screening Dental Screen Date: 05/04/23 HPI 3 month f/u in july for f/u htn and hyperkalemia HPI Details 48 y/o male presents today to f/u hypert ension, hypokalemia. Labs drawn 01/24/24. Reviewed labs with pt. Potassium level 3.8 and is within normal range. Was given potassium supplementation. Blood pressure today 143/72, 83p. He is on hydrochlorothiazide 25mg. Notes he had been on losartan before but had complications with it due to shortages. [facility] Surgical History History of tonsillectomy and adenoidectomy History of tympanoplasty of left ear History of mastoidectomy Cholesteatoma of attic, right ear Social History Housing: House Alcohol intake: never Patient Tobacco Use Status: Current everyday Tobacco user Cigarettes Per Day: 7 e-Cigarette/Vaping Use: Never Used Second Hand Smoke Exposure: No service: No Current occupational status: employed Current occupational exposures/hazards: No Cognitive needs: No Hearing needs: No Vision needs: No Questionnaire PHQ-9 Over the last 2 weeks, how often have you been bothered by any of the following problems? 1. Little interest or pleasure in doing things: not at all 2. Feeling down, depressed, or hopeless: not at all 3. Trouble falling or staying asleep, or sleeping too much: several days 4. Feeling tired or having little energy: not at all 5. Poor appetite or overeating: several days 6. Feeling bad about yourself - or that you are a failure or have let yourself or your family down: not at all 7. Trouble concentrating on things, such as reading the newspaper or watching television: not at all 8. Moving or speaking so slowly that other people could have noticed. Or the opposite - being so fidgety or restless that you have been moving around a lot more than usual: not at all 9. Thoughts that you would be better off or of hurting yourself in some way: not at all Total score: 2 Source: Developed by Drs. Melo Sanches, Candice Tapia, Anibal Peng and colleagues, with an educational eboni from [employer]. Thrive Questionnaire Date Thrive assessed: 05/04/23 I am a: Patient What is your living situation today?: I have a steady place to live Within the past 12 months, did the food you bought not last and you didn't have the money to get more?: Never true Within the past 12 months, did you worry whether your food would run out before you got money to buy more?: Never true Do you have trouble paying for medicines?: Yes Do you have trouble getting transportation to medical appointments?: No Do you have trouble paying your heating and electricity bill?: Yes Do you have trouble taking care of your child, family member or friend?: No Do you have trouble with day-to-day activities such as bathing, preparing meals, shopping, managing finances, etc.?: No Are you currently unemployed and looking for a job?: No Are you interested in more education?: No Please select the resources that you would like help with: None Currently or been in a relationship where the following occur: No concerns reported THRIVE Score: 1 AUDIT C Alcohol Use Questionnaire (AUDIT-C) 1. How often do you have a drink containing alcohol?: Never Total Score: 0 MONA-7 AMB Questionnaire MONA-7 Date MONA - 7 assessed: 05/04/23 Feeling nervous, anxious, or on edge: 1 = Several days Not being able to stop or control worryin = Several days Worrying too much about different things: 1 = Several days Trouble relaxin = Several days Being so restless that it is hard to sit still: 1 = Several days Becoming easily annoyed or irritable: 0 = Not at all Feeling afraid as if something awful might happen: 1 = Several days Total MONA-7 score (0-4 normal; 5-9 mild; 10-14 moderate; 15-21 severe): 6 Source: Developed by Drs. Melo Sanches, Candice Tapia, Anibal Peng and colleagues, with an educational eboni from [employer]. Review of Systems Const Denies chills, Denies fatigue, Denies fever(s), Denies headache(s) and Denies weakness ENT Denies dizziness and Denies headache(s) Card Denies dyspnea Resp Denies cough, Denies dyspnea, Denies wheezing and Denies other (shortness of breath) Musc Denies numbness and Denies tingling Neuro Denies dizziness, Denies headache(s), Denies numbness, Denies tingling and Bertrand es weakness Psych Denies anxiety and Denies depression Endo Denies fatigue Aller/Immun Denies wheezing Physical exam (Primary Care) Vital Signs: Last Vital Signs Temp 97.7 F 01/25/24 10:34 Pulse 83 01/25/24 10:34 Resp 14 01/25/24 10:34 BP 143/72 H 01/25/24 10:34 Pulse Ox 96 01/25/24 10:34 Oxygen Delivery Method Room Air 01/25/24 10:34 BMI result Body Mass Index 44.5 Tobacco/Smoking Status: Tobacco use Status Tobacco use date assessed 05/04/23 01/25/24 10:33 Patient Tobacco Use Status Current everyday Tobacco 01/25/24 10:33 e-Cigarette/Vaping Use Never Used 01/25/24 10:33 PHQ-9: PHQ-9 Score PHQ-9: Total score 2 01/25/24 10:33 Thrive Assessment: Date of Thrive Assessment Date Thrive assessed 05/04/23 01/25/24 10:33 Currently or been in a relationship where the following occur: No concerns repor erica Const General: well developed; No acute distress Nutritional Appearance: well nourished Orientation/consciousness: patient oriented x3 HENMT Head: Yes normocephalic and Yes atraumatic Eyes General: appearance normal, both eyes and all related structures Pupils: Equal, round and reactive pupils present EOM: EOMs intact bilaterally Resp Effort & Inspection: normal respiratory effort Auscultation: clear to auscultation bilaterally Cardio Rate: regular rate Rhythm: regular rhythm Heart sounds: S1 normal heart sound present, S2 normal heart sound present, no gallops, no murmurs and no rubs Neuro General: patient oriented x3 and gait normal Cranial nerves: Yes Equal, round and reactive pupils present Psych Affect: normal affect Coding Level of Care Code Est Pt Level 3 (12457) Diagnoses Essential hypertension I10 Hypokalemia E87.6 Assessment & Plan Assessment & Plan (1) Essential hypertension: Code(s): I10 - Essential (primary) hypertension Category: Medical Plan: Blood?pressure?had?been?high?at?last?check?at?the?beginning?of?the?year. Had?given?him?a?script?for?hydrochlorothiazide?and?blood?pressure?today?is?still ?too?high. He?has?also?had?issues?with?hypokalemia?and?was?given?potassium?supplementation Will?give?him?a?script?for?losartan- hydrochlorothiazide?which?should?improve?blood?pressure?control?and?decrease?pot assium?loss. He?will?hold?off?on?potassium?supplementation Will?have?him?come?back?in?about?2?weeks?to?follow- up?on?blood?pressure?and?his?potassium?level?which?he?will?get?drawn?about?2?day s?prior to visit (2) Hypokalemia: Code(s): E87.6 - Hypokalemia Category: Medical Plan: As?above Orders: Orders Comprehensive Met. Panel Today E87.6 - Hypokalemia TSH reflex Free T4 Today R79.89 - Other specified abnormal findings of blood chemistry, Z00.00 - Encounter for general adult medical examination without abnormal findings Medications: New losartan-hydrochlorothiazide 100-25 mg 1 tab PO DAILY 30 days 30 tabs 1RF Discontinued potassium gluconate Discontinued Reason: Doctor's Order 550 mg PO .QOD 30 days 15 tabs 2RF hydrochlorothiazide Discontinued Reason: Doctor's Order 25 mg PO QAM 90 days 90 tabs 0RF
[2024-01-25 10:34] VITALS: BP 143/72; PULSE 83; RESP 14; TEMP 36.5; O2SAT 96; BMI 44.5
== END 2024-01-25 10:58 | disposition home or self-care (01) ==
LOC: HO.HMCFM 10:27
PROVIDERS: PCP Family Medicine; Visit Provider Family Medicine
DX: I10 Essential (primary) hypertension (principal); E87.6 Hypokalemia

== ENCOUNTER → 2024-01-25 10:26 | Outpatient (BNVA) | payer OTHER, SELFPAY | PROVIDERS: PCP Family Medicine; Visit Provider Family Medicine ==

== ENCOUNTER 2024-02-08 09:37 | Outpatient (REF) | payer OTHER, SELFPAY ==
[2024-02-08 14:17] LABS: Alanine Aminotransferase 40 U/L (0-40); Albumin Level 4.2 g/dL (3.5-5.0); Alkaline Phosphatase 117 U/L (39-117); Anion Gap 13 (12-20); Aspartate Amino Transferase 38 U/L (5-37); Bilirubin Total 0.7 mg/dL (0.0-1.0); Blood Urea Nitrogen 7 mg/dL (9-16); Calcium 9.8 mg/dL (8.4-10.2); Carbon Dioxide 31 mmol/L (22-29); Chloride 99 mmol/L (96-108); Estimated Glomerular Filt Rate > 60; Glucose Random 85 mg/dL (60-115); Potassium 3.5 mmol/L (3.3-5.1); Sodium 139 mmol/L (135-145); Total Protein 7.6 g/dL (6.5-8.0)
[2024-02-08 14:37] LABS: TSH reflex Free T4 0.65 uIU/mL (0.32-4.0)
== END 2024-02-08 09:38 | disposition home or self-care (01) ==
LOC: HO.HMGCLDS 09:37
PROVIDERS: PCP Family Medicine; Visit Provider Family Medicine
DX: Z00.00 Encounter for general adult medical examination without abnormal findings (principal); E87.6 Hypokalemia; R79.89 Other specified abnormal findings of blood chemistry
CPT/HCPCS: 36415; 80053; 84443

== ENCOUNTER 2024-02-09 15:27 | Outpatient (AMB) | payer OTHER, SELFPAY ==
--- NOTE | 2024-02-09 15:35 | A.OFFPC_ITS ---
Vital Signs 02/09/24 15:36 Height 5 ft 10 in Weight 317 lb 2 oz BMI 45.5 BP 128/66 Blood Pressure Location Rt brachial Position Sitting Respiration 16 Pulse 76 Pulse Source Pulse Oximeter Temp 98.6 F Temp Source Temporal Artery Scan Pulse Oximetry (%) 95 Oxygen Delivery Method Room Air Intake Visit Reasons: F/U labs Intake Note: f/u labs Allergies aspirin [ASPIRIN] Allergy (Unknown, Verified 02/09/24 15:35) HIVES/SWOLLEN THROAT, hives ibuprofen Allergy (Unknown, Verified 02/09/24 15:35) hives naproxen [Aleve] Allergy (Unknown, Verified 02/09/24 15:35) hives penicillin V Allergy (Unknown, Verified 02/09/24 15:35) hives propranolol Allergy (Unknown, Verified 02/09/24 15:35) erectile dysfunction NSAIDS Allergy (Unknown, Uncoded 05/04/23 16:18) Unknown Medication List - Last Reconciled 02/09/24 by Diego Bajwa MD albuterol sulfate 90 mcg/actuation (ProAir HFA) 2 puffs inhalation Q4-6H PRN 30 days bisacodyl (Dulcolax (bisacodyl)) 10 mg (2 x 5 mg) PO BEDTIME fluoxetine 10 mg PO DAILY 90 days losartan-hydrochlorothiazide 100-25 mg 1 tab PO DAILY 30 days omeprazole 20 mg PO DAILY 30 days polyethylene glycol 3350 (Miralax) 238 grams PO ONCE Tobacco use date assessed: 05/04/23 Dental Screening Dental Screen Date: 05/04/23 HPI F/U labs HPI Details 48 y/o male presents to f/u hypertension , hypokalemia. Had given him a script for losartan-HCTZ. Blood pressure today 128/66, 76p. He is on losartan-hydrochlorothiazide 100-25mg daily. Labs drawn 02/08/24. Reviewed labs with pt. Potassium improved from 2.8 mmol/L to 3.5 mmol/L. AST mildly elevated at 38. Has gained some weight - 310lbs 01/25/24 to 317 lbs today 02/09/24. Pt feels well otherwise. HPI Comments History of Present Illness Details Documentation assistance for Diego Bajwa MD, was provided by Thony Palumbo,? Nitroglycerin Supervisor on 02/09/2024 at 3:46 PM EST. I, Dr. Bajwa, have read, observed, and verified documentation. [facility] Surgical History History of tonsillectomy and adenoidectomy History of tympanoplasty of left ear History of mastoidectomy Cholesteatoma of attic, right ear Social History Housing: House Alcohol intake: never Patient Tobacco Use Status: Current everyday Tobacco user Cigarettes Per Day: 7 e-Cigarette/Vaping Use: Never Used Second Hand Smoke Exposure: No service: No Current occupational status: employed Current occupational exposures/hazards: No Cognitive needs: No Hearing needs: No Vision needs: No Questionnaire Thrive Questionnaire Date Thrive assessed: 01/25/24 I am a: Patient What is your living situation today?: I have a steady place to live Within the past 12 months, did the food you bought not last and you didn't have the money to get more?: Never true Within the past 12 months, did you worry whether your food would run out before you got money to buy more?: Never true Do you have trouble paying for medicines?: Yes Do you have trouble getting transportation to medical appointments?: No Do you have trouble paying your heating and electricity bill?: Yes Do you have trouble taking care of your child, family member or friend?: No Do you have trouble with day-to-day activities such as bathing, preparing meals, shopping, managing finances, etc.?: No Are you currently unemployed and looking for a job?: No Are you interested in more education?: No Please select the resources that you would like help with: None Currently or been in a relationship where the following occur: No concerns reported THRIVE Score: 1 MONA-7 AMB Questionnaire MONA-7 Date MONA - 7 assessed: 05/04/23 Source: Developed by Drs. Melo Sanches, Candice Tapia, Anibal Peng and colleagues, with an educational eboni from [employer]. Review of Systems Const Denies chills, Denies fatigue, Denies fever(s), Denies headache(s) and Denies weakness ENT Denies dizziness and Denies headache(s) Card Denies dyspnea Resp Denies cough, Denies dyspnea, Denies wheezing and Denies other (shortness of breath) Musc Denies numbness and Denies tingling Neuro Denies dizziness, Denies headache(s), Denies numbness, Denies tingling and Denies weakness Psych Denies anxiety and Denies depression Endo Denies fatigue Aller/Immun Denies wheezing Physical exam (Primary Care) Vital Signs: Last Vital Signs Temp 98.6 F 02/09/24 15:36 Pulse 76 02/09/24 15:36 Resp 16 02/09/24 15:36 BP 128/66 02/09/24 15:36 Pulse Ox 95 02/09/24 15:36 Oxygen Delivery Method Room Air 02/09/24 15:36 BMI result Body Mass Index 45.5 Tobacco/Smoking Status: Tobacco use Status Tobacco use date assessed 05/04/23 02/09/24 15:39 Patient Tobacco Use Status Current everyday Tobacco 02/09/24 15:39 e-Cigarette/Vaping Use Never Used 02/09/24 15:39 Thrive Assessment: Date of Thrive Assessment Date Thrive assessed 01/25/24 02/09/24 15:39 Currently or been in a relationship where the following occur: No concerns reported Const General: well developed; No acute distress Nutritional Appearance: well nourished and obese morbidly obese Orientation/consciousness: patient oriented x3 [facility] Head: Yes normocephalic and Yes atraumatic Eyes General: appearance normal, both eyes and all related structures Pupils: Equal, round and reactive pupils present EOM: EOMs intact bilaterally Resp Effort & Inspection: normal respiratory effort Auscultation: clear to auscultation bilaterally Cardio Rate: regular rate Rhythm: regular rhythm Heart sounds: S1 normal heart sound present, S2 normal heart sound present, no gallops, no murmurs and no rubs Neuro General: patient oriented x3 and gait normal Cranial nerves: Yes Equal, round and reactive pupils present Psych Affect: normal affect Coding Level of Care Code Est Pt Level 3 (54138) Diagnoses Essential hypertension I10 Hypokalemia E87.6 Elevated liver enzymes R74.8 Assessment & Plan Assessment & Plan (1) Essential hypertension: Code(s): I10 - Essential (primary) hypertension Category: Medical Plan: Blood?pressure?now?well?controlled?and?at?goal?of?less?than?140/90 Continue?current?medication Encouraged?weight?loss?and?exercise?as?tolerated (2) Hypokalemia: Code(s): E87.6 - Hypokalemia Category: Medical Plan: Patient?had?been?on?hydrochlorothiazide?and?potassium?was?low- he?was?requiring?supplementation Added?losartan?to?a?combo?pill?to?prevent?potassium?loss?and?had?him?stop?potass ium?supplement Potassium?level?now?at?lower?end?of?normal He?will?continue?losartan- hydrochlorothiazide?and?advised?increasing?potassium?in?his?diet?e.g.?banana?a?f ew?times?a?week Will?recheck?potassium?with?next?blood?draw (3) Elevated liver enzymes: Code(s): R74.8 - Abnormal levels of other serum enzymes Category: Medical Plan: Mild?elevation?in?AST?concurrent?with?increase?in?weight Encouraged?weight?loss,?good?hydration?and?avoiding?large?amounts?of?Ty lenol.??He?can?use?topicals?instead.??He?does?not?drink?alcohol. Will?recheck?liver?enzymes?at?next?blood?draw.??If?liver?enzymes?continue?to?ris e,?will?check?an?ultrasound Orders: Orders Thyroid Stimulating Hormone Today E03.9 - Hypothyroidism, unspecified, R79.89 - Other specified abnormal findings of blood chemistry Comprehensive [place]. Panel Fast Today R74.8 - Abnormal levels of other serum enzymes, Z00.00 - Encounter for general adult medical examination without abnormal findings Free T4 (Free Thyroxine) Today E03.9 - Hypothyroidism, unspecified, R79.89 - Other specified abnormal findings of blood chemistry Triiodothyronine T3 Total Today E03.9 - Hypothyroidism, unspecified, R79.89 - Other specified abnormal findings of blood chemistry Lipid Panel Today E78.6 - Lipoprotein deficiency, Z00.00 - Encounter for general adult medical examination without abnormal findings
[2024-02-09 15:36] VITALS: BP 128/66; PULSE 76; RESP 16; TEMP 37; O2SAT 95; BMI 45.5
== END 2024-02-09 15:56 | disposition home or self-care (01) ==
PROVIDERS: PCP Family Medicine; Visit Provider Family Medicine
DX: I10 Essential (primary) hypertension (principal); E87.6 Hypokalemia; R74.8 Abnormal levels of other serum enzymes

== ENCOUNTER → 2024-02-09 15:27 | Outpatient (BNVA) | payer OTHER, SELFPAY | PROVIDERS: PCP Family Medicine; Visit Provider Family Medicine ==

== ENCOUNTER 2024-06-22 06:01 | Outpatient (REF) | payer OTHER, SELFPAY ==
[2024-06-22 10:27] LABS: Alanine Aminotransferase 50 U/L (0-40); Albumin Level 4.2 g/dL (3.5-5.0); Alkaline Phosphatase 116 U/L (39-117); Anion Gap 12 (12-20); Aspartate Amino Transferase 36 U/L (5-37); Bilirubin Total 0.6 mg/dL (0.0-1.0); Blood Urea Nitrogen 7 mg/dL (9-16); Calcium 9.8 mg/dL (8.4-10.2); Carbon Dioxide 32 mmol/L (22-29); Chloride 103 mmol/L (96-108); Cholesterol 154 mg/dL (<200); Estimated Glomerular Filt Rate > 60; Glucose Fasting 91 mg/dL (60-99); HDL Cholesterol 38 mg/dL (>40); LDL Cholesterol Calculated 96 mg/dL (<100); Potassium 4.4 mmol/L (3.3-5.1); Sodium 143 mmol/L (135-145); Total Protein 7.7 g/dL (6.5-8.0); Triglycerides 103 mg/dL (<150)
[2024-06-22 10:49] LABS: Free T4 (Free Thyroxine) 1.19 ng/dL (0.71-1.85); Thyroid Stimulating Hormone 0.75 uIU/mL (0.32-4.0)
[2024-06-22 11:00] LABS: Alanine Aminotransferase 47 U/L (0-40); Albumin Level 4.1 g/dL (3.5-5.0); Alkaline Phosphatase 116 U/L (39-117); Aspartate Amino Transferase 37 U/L (5-37); Bilirubin Direct 0.2 mg/dL (0.0-0.5); Bilirubin Total 0.6 mg/dL (0.0-1.0); Total Protein 7.5 g/dL (6.5-8.0)
[2024-06-23 07:03] LABS: Triiodothyronine T3 Total 139 ng/dL (76-181)
== END 2024-06-22 06:02 | disposition home or self-care (01) ==
LOC: HO.HMGCLDS 06:01
PROVIDERS: PCP Family Medicine; Referring Provider Podiatrist; Visit Provider Family Medicine
DX: Z00.00 Encounter for general adult medical examination without abnormal findings (principal); B35.1 Tinea unguium; E78.6 Lipoprotein deficiency; R79.89 Other specified abnormal findings of blood chemistry; E03.9 Hypothyroidism, unspecified
CPT/HCPCS: 36415; 80053; 80061; 80076; 82248; 84439; 84443; 84480

== ENCOUNTER 2024-06-28 11:29 | Outpatient (AMB) | payer OTHER, SELFPAY ==
--- NOTE | 2024-06-28 11:32 | MHC.PC.OV ---
Vital Signs 06/28/24 11:35 Height 5 ft 10 in Weight 313 lb 8 oz BMI 45.0 BP 120/70 Blood Pressure Location Lt brachial Position Sitting Respiration 14 Pulse 107 H Pulse Source Pulse Oximeter Temp 98.9 F Temp Source Oral Pulse Oximetry (%) 98 Oxygen Delivery Method Room Air Intake Visit Reasons: f/u hypokalemia, elevated liver enzymes, labs Intake Note: patient is schedule for lab review with pcp [employer] Associate Required: No Allergies aspirin [ASPIRIN] Allergy (Severe, Verified 06/28/24 11:34) hives/throat swelling ibuprofen Allergy (Intermediate, Verified 06/28/24 11:34) hives naproxen [Aleve] Allergy (Intermediate, Verified 06/28/24 11:34) hives NSAIDS (Non-Steroidal Anti-Inflamma Allergy (Intermediate, Verified 06/28/24 11:34) Hives penicillin V Allergy (Intermediate, Verified 06/28/24 11:34) hives propranolol Allergy (Intermediate, Verified 06/28/24 11:34) erectile dysfunction Medication List - Last Reconciled 06/28/24 by Diego Bajwa MD albuterol sulfate 90 mcg/actuation (ProAir HFA) 2 puffs inhalation Q4-6H PRN 30 days bisacodyl (Dulcolax (bisacodyl)) 10 mg (2 x 5 mg) PO BEDTIME fluoxetine 10 mg PO DAILY 90 days losartan-hydrochlorothiazide 100-25 mg 1 tab PO DAILY 30 days omeprazole 20 mg PO DAILY 30 days polyethylene glycol 3350 (Miralax) 238 grams PO ONCE Tobacco use date assessed: 05/04/23 Dental Screening Dental Screen Date: 05/04/23 HPI f/u hypokalemia, elevated liver enzymes, labs HPI Details 48 y/o male presents to f/u hypokalemia, liver enzymes, labs. Labs drawn 06/22/24. Reviewed labs with pt. Elevated ALT of 47. Triglycerides 103. TC 154. LDL 96. HDL low at 38. TSH 0.75. Potassium levels are fine at 4.4 mmol/L. BP today 120/70, 107p. He is on losartan-HCTZ 100-25mg daily. [facility] Medical History (Updated 04/28/24 @ 14:25 by Alda Murray RN) Anxiety GERD (gastroesophageal reflux disease) Sleep apnea HTN (hypertension) Surgical History History of tonsillectomy and adenoidectomy History of tympanoplasty of left ear History of mastoidectomy Cholesteatoma of attic, right ear Social History Housing: House Alcohol intake: never Patient Tobacco Use Status: Current everyday Tobacco user Cigarettes Per Day: 7 e-Cigarette/Vaping Use: Never Used Second Hand Smoke Exposure: No service: No Current occupational status: employed Current occupational exposures/hazards: No Cognitive needs: No Hearing needs: No Vision needs: No Questionnaire PHQ-9 Over the last 2 weeks, how often have you been bothered by any of the following problems? 1. Little interest or pleasure in doing things: not at all 2. Feeling down, depressed, or hopeless: not at all 3. Trouble falling or staying asleep, or sleeping too much: not at all 4. Feeling tired or having little energy: not at all 5. Poor appetite or overeating: not at all 6. Feeling bad about yourself - or that you are a failure or have let yourself or your family down: not at all 7. Trouble concentrating on things, such as reading the newspaper or watching television: not at all 8. Moving or speaking so slowly that other people could have noticed. Or the opposite - being so fidgety or restless that you have been moving around a lot more than usual: not at all 9. Thoughts that you would be better off or of hurting yourself in some way: not at all Total score: 0 Depression Screening Interpretation: Negative Depression Screening Done: Yes 08607 - PHQ-9 Billing: Yes Source: Developed by Drs. Melo Sanches, Candice Tapia, Anibal Peng and colleagues, with an educational eboni from [employer]. Thrive Questionnaire Date Thrive assessed: 01/25/24 I am a: Patient What is your living situation today?: I have a steady place to live Within the past 12 months, did the food you bought not last and you didn't have the money to get more?: Never true Within the past 12 months, did you worry whether your food would run out before you got money to buy more?: Never true Do you have trouble paying for medicines?: No Do you have trouble getting transportation to medical appointments?: No Do you have trouble paying your heating and electricity bill?: No Do you have trouble taking care of your child, family member or friend?: No Do you have trouble with day-to-day activities such as bathing, preparing meals, shopping, managing finances, etc.?: No Are you currently unemployed and looking for a job?: No Are you interested in more education?: No Please select the resources that you would like help with: None Currently or been in a relationship where the following occur: No concerns reported THRIVE Score: 0 AUDIT C Alcohol Use Questionnaire (AUDIT-C) 1. How often do you have a drink containing alcohol?: Never 3. How often do you have six or more drinks on one occasion?: Never Total Score: 0 Score Reviewed/Action Taken: Yes MONA-7 AMB Questionnaire MONA-7 Date OMNA - 7 assessed: 06/28/24 Feeling nervous, anxious, or on edge: 0 = Not at all Not being able to stop or control worryin = Not at all Worrying too much about different things: 1 = Several days Trouble relaxin = Several days Being so restless that it is hard to sit still: 1 = Several days Becoming easily annoyed or irritable: 0 = Not at all Feeling afraid as if something awful might happen: 1 = Several days Total MONA-7 score (0-4 normal; 5-9 mild; 10-14 moderate; 15-21 severe): 4 Source: Developed by Drs. Melo Sanches, Candice Tapia, Anibal Peng and colleagues, with an educational eboni from [employer]. MONA-7 Assessment Billing MONA-7 Assessment Tool: MONA-7 Assessment 46813 Review of Systems Const Denies chills, Denies fatigue, Denies fever(s), Denies headache(s) and Denies weakness ENT Denies dizziness and Denies headache(s) Card Denies dyspnea Resp Denies cough, Denies dyspnea, Denies wheezing and Denies other (shortness of breath) Musc Denies numbness and Denies tingling Neuro Denies dizziness, Denies headache(s), Denies numbness, Denies tingling and Denies weakness Psych Denies anxiety and Denies depression Endo Denies fatigue Aller/Immun Denies wheezing Physical exam (Primary Care) Vital Signs: Last Vital Signs Temp 98.9 F 06/28/24 11:35 Pulse 107 H 06/28/24 11:35 Resp 14 06/28/24 11:35 BP 120/70 06/28/24 11:35 Pulse Ox 98 06/28/24 11:35 Oxygen Delivery Method Room Air 06/28/24 11:35 BMI result Body Mass Index 45.0 Tobacco/Smoking Status: Tobacco use Status Tobacco use date assessed 05/04/23 06/28/24 11:38 Patient Tobacco Use Status Current everyday Tobacco 06/28/24 11:38 e-Cigarette/Vaping Use Never Used 06/28/24 11:38 PHQ-9: PHQ-9 Score PHQ-9: Total score 0 06/28/24 11:47 Depression Screening Interpretation: Negative Thrive Assessment: Date of Thrive Assessment Date Thrive assessed 01/25/24 06/28/24 11:38 Currently or been in a relationship where the following occur: No concerns reported Const General: well developed; No acute distress Nutritional Appearance: well nourished Orientation/consciousness: patient oriented x3 HENMT Head: Yes normocephalic and Yes atraumatic Eyes General: appearance normal, both eyes and all related structures Pupils: Equal, round and reactive pupils present EOM: EOMs intact bilaterally Resp Effort & Inspection: normal respiratory effort Neuro General: patient oriented x3 and gait normal Cranial nerves: Yes Equal, round and reactive pupils present Psych Affect: normal affect Coding Level of Care Code Est Pt Level 4 (03573) Diagnoses Essential hypertension I10 Elevated liver enzymes R74.8 Hypokalemia E87.6 Gastroesophageal reflux disease, unspecified whether esophagitis present K21.9 Esophagitis presence: esophagitis presence not specified Screening for colon cancer Z12.11 Additional Codes MONA-7 Assessment Billing - MONA-7 Assessment Tool: MONA-7 Assessment 94951 ([id number]) PHQ-9 - 78033 - PHQ-9 Billing: Yes ([id number]) Assessment & Plan Assessment & Plan (1) Essential hypertension: Code(s): I10 - Essential (primary) hypertension Category: Medical Plan: Blood?pressure?is?controlled.??Goal?is?less?than?140/90 Continue?current?medications (2) Elevated liver enzymes: Code(s): R74.8 - Abnormal levels of other serum enzymes Category: Medical Plan: Mildly?elevated?liver?enzymes Likely?fatty?liver?disorder Will?have?him?continue?to?work?on?weight?loss If?not?improving?or?if?liver?enzymes?continue?to?rise,?will?check?an?ultrasound (3) Hypokalemia: Code(s): E87.6 - Hypokalemia Category: Medical Plan: Potassium?level?is?within?normal?range?since?adding?losartan?to?his?medication?regimen?for?blood?pressure (4) GERD (gastroesophageal reflux disease): Code(s): K21.9 - Gastro-esophageal reflux disease without esophagitis Category: Medical Qualifiers: Esophagitis presence: esophagitis presence not specified Qualified Code(s): K21.9 - Gastro-esophageal reflux disease without esophagitis Plan: Will?refer?him?back?to?gastroenterology (5) Screening for colon cancer: Code(s): Z12.11 - Encounter for screening for malignant neoplasm of colon Category: Medical Plan: Referred?to?Gastroenterology Orders: Orders Comprehensive [place]. Panel Fast Today R74.8 - Abnormal levels of other serum enzymes, Z00.00 - Encounter for general adult medical examination without abnormal findings Lipid Panel Today R74.8 - Abnormal levels of other serum enzymes, Z00.00 - Encounter for general adult medical examination without abnormal findings Referrals Gastroenterology Referral K21.9 - Gastro-esophageal reflux disease without esophagitis, Z12.11 - Encounter for screening for malignant neoplasm of colon
[2024-06-28 11:35] VITALS: BP 120/70; PULSE 107; RESP 14; TEMP 37.2; O2SAT 98; BMI 45.0
--- OUTSIDE RECORDS SUMMARY | 2024-06-28 14:07 | XMS_ITS | Patient Health Record ---
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 Role Phone Garett ARENTT, Diego Primary Care Provider Henny Fierro Unavailable [phone] Allergies Allergen (clinical drug ingredient) Drug/Non Drug Allergy documented on EMR Reaction Allergy Type Onset Date Status ibuprofen Advil Unknown Drug Allergy Active aspirin Aspirin Unknown Drug Allergy Active Penicillin Unknown Drug Allergy Active Reason For Referral No Information Medications Medication SIG (Take, Route, Fr equency, Duration) Notes Start Date End Date Status Losartan Potassium A ctive Omeprazole Active Fluoxetine Active LamISIL 250 MG 1 tablet Orally Once a day for 30 days Active hydroCHLOROthiazide Active Ketoconazole 2 % 1 application Faceter ally Once a day to both feet for 30 days 04/27/2024 Act haider Social History Tobacco Use: Social History Observation Description Date Details (start date - stop date) Current Smoker NA - NA Tobacco use other than smoking: Question Answer Notes Are you an other tobacco user? No Tobacco Control (Standard) Question Answer Notes Tobacco use: Current smoker How often do you smoke cigarettes? Every day How many cigarettes a day do you smoke? 5 or les s How soon after you wake up d o you smoke your first cigarette? After 60 minutes Are you interested in quitting? Thinking about q uitting AUDIT-C (Standard) Question Answer Notes Did you have a drink containing alcohol in the p ast year? No Points 0 Interpretation Negative Problems Problem Type SNOMED Code ICD Code Onset Dates Problem Status W/U Status Risk Notes Problem Plantar wart ([id number]) Plantar wart (B07.0) Active confirmed Vital Signs Blood pressure diastolic 80 mm Hg 04/27/2024 Height 5 ft 9 in in 04/27/2024 Blood pressure systolic 130 mm Hg 04/27/2024 Weight 290 lbs 04/27/2024 BMI 42.82 kg/m2 04/27/2024 Encounters Encounter Location Date Provider Diagnosis [address] [address] 04/27/2024 Henny Ballard Onychomycosis B35.1 ; Tinea pedis of both feet B35.3 ; Right foot pain M79.671 ; Plantar wart B07.0 and Left foot pain M79.672 [facility] [address] [place] [address] 03/09/2024 [facility] Ballard [facility] [address] [place] [address] 04/05/2024 Henny Ballard [facility] [address] [place] [address] 06/23/2024 Henny Ballard Assessments Encounter Date Diagnosis (ICD Code) Assessment Notes Treatment Notes Treatment Clinical Notes Section Notes 04/27/2024 Onychomycosis (ICD-10 - B35.1) 04/27/2024 Tinea pedis of both feet (ICD-10 - B35.3) 04/27/2024 Right foot pain (ICD-10 - M79.671) 04/27/2024 Plantar wart (ICD-10 - B07.0) 04/27/2024 Left foot pain (ICD-10 - M79.672) Plan Of Treatment Pending Test Test Name Order Date *Liver Function Test (LFT) 04/27/2024 Next Appt Details Provider Name:Henny merida, 07/18/2024 03:15:00 PM, [address] [place], [address], Insurance Providers Payer Name Payer Address Payer Phone Subscriber Number Group Number Insured Name Patient Relationship to Insured Coverage Start Date Coverage End Date [facility] [address] [place] [address] [id number] Ant Mcdonald Self - patient is the insured 06/03/202 4 Medical (General) History Medical History History ICD Code Anxiety Back,Hip,and Knee pain Broken bones covid-19 High Blood Pressure Reflux ( GERD) Sciatica Warts Chicken pox Surgical History Surgery Date(Month/Year) cholecystectomy mastoidectomy 1987 tympanoplasty 1987, 2016 prosthetic ear bones 2017
--- OUTSIDE RECORDS SUMMARY | 2024-06-28 14:07 | XMS_ITS ---
Author Organization [facility] Sadia Andersonley Address [address] [facility] [place] [address] Care Team Providers Care Sergeant Of Corrections Name Role Phone Diego Bajwa MD Primary Care Provider Henny Fierro Unavailable [phone] Allergies Allergen (clinical drug ingredient) Drug/Non Drug Allergy documented on EMR Reaction Allergy Type Onset Date Status ibuprofen Advil Unknown Drug Allergy Active aspirin Aspirin Unknown Drug Allergy Active Penicillin Unknown Drug Allergy Active REASON FOR VISIT Fungal Nails, Skin Problem, Wart(s) Medications Medication SIG (Take, Route, Fr equency, Duration) Notes Start Date End Date Status Losartan Potassium A ctive Omeprazole Active Fluoxetine Active LamISIL 250 MG 1 tablet Orally Once a day for 30 days Active hydroCHLOROthiazide Active Ketoconazole 2 % 1 application Radiology Services Manager ally Once a day to both feet [...] W/U Status Risk Notes Problem Plantar wart (57616084) Plantar wart (B07.0) Active confirmed Vital Signs Height 5 ft 9 in in 04/27/2024 Weight 290 lbs 04/27/2024 BMI 42.82 kg/m2 04/27/2024 Blood pressure systolic 130 mm Hg 04/27/19 25 Blood pressure diastolic 80 mm Hg 025 Encounters Encounter Location Date Provider Diagnosis [facility] [address] 04/27/2024 Henny Ballard Onychomycosis B35.1 ; Tinea pedis of both feet B35.3 ; Right foot pain M79.671 ; Plantar wart B07.0 and Left foot pain M79.672 Assessments Encounter Date Diagnosis (ICD Code) Assessment Notes Treatment Notes Treatment Clinical Notes Section Notes 04/27/2024 Onychomycosis (ICD-10 - B35.1) 04/27/2024 Tinea pedis of both feet (ICD-10 - B35.3) 04/27/2024 Right foot pain (ICD-10 - M79.671) 04/27/2024 Plantar wart (ICD-10 - B07.0) 04/27/2024 Left foot pain (ICD-10 - M79.672) Plan Of Treatment Medication Medication Name Sig Start Date Stop Date Notes LamISIL 250 MG 1 tablet Orally Once a day for 30 days Ketoconazole 2 % 1 application Radiology Services Manager ally Once a day to both feet for 30 days 04/27/2024 Pending Test Test Name Order Date *Liver Function Test (LFT) 04/27/2024 Next Appt Details Follow Up: 2-3 Months, Reaso n: Provider Name:Henny merida, 07/18/2024 03:15:00 PM, [address] [place] [address], [id number], Procedure Notes * Category Sub-Category Detail Notes Wart Treatment Procedure Verruca, as desc ribed in exam, were debrided to pin- point bleeding margins with sterile 15 surgical blade, silver nitrate chemocautery applied, recomm. immune-boosting meds such as zinc, recomm. follow up with topical chemosurgical agents, Pt defers any other forms of tx - 86439 Progress Notes * Becky MCDONALD:1975 ( 48 yo M)Acc No.[id number]:04/27/2024 Progress Notes Patient:?Ant MCDONALD Provider:?Henny Ballard DPM :1975???Age:48 Y???Sex:Male Nicko e:04/27/2024 Address:[address] [place] [address] [id number] Pcp:Diego Bajwa MD Subjective: * Chief Complaints: * ???Fungal NailsSkin ProblemW art(s) * HPI: ???Painful Nails:?Nature:?aching, tender, discolored, thick.?Course:?worse.?Aggravated by:?shoegear causing difficulty standing/walking.?Treatments:?OTC Topical Antifungal.?Skin problems:?Pt States PCP Visit: ?DATE?03/16/2024 ?Nature:?scaling , redness.?Location:?B/L .?Duration:?, several months.?Treatments:?medication ( Ketoconazole).? * ROS:?General/Constitutional:?Nausea?denies.?Vomiting?denies.?Hunger Thirst?denies.?Loss appetite?denies.?Chills?denies.?Fatigue?denies.?Fever?denies.?Night Sweats?denies.?Unexplained weight loss?denies.?Unexplained weight gain?denies.?HEENTM:?Dentures?admits.?Dizziness?denies.?Glasses/contacts?denies.?Retinopathy?de nies.?Blurred/double vision?denies.?TMJ?denies.?Discharge/drainage?denies.?Implants?denies.?Sore throat?denies.?Dental implants?denies.?Hard of hearing ?admits.?Difficulty chewing/swallowing/speaking?denies.?Nose bleeds?denies.?Sore mouth?denies.?Respiratory:?On Oxygen?denies.?Pneumonia/pleurisy?admits.?Bronchitis?admits.?Emphysema?denies.?C oughing?denies.?Cough blood?denies.?Shortness of breath?denies.?Wheezing?denies.?Cardiovascular:?Pacemaker?denies.?MVP?denies.?WPW?denies.?CHF?denies.?Heart attack?denies.?Septal defect?denies.?Rapid beat?denies.?Chest pain ?denies.?Atrial Fib.?denies.?Murmur/Palpitations?denies.?Gastrointestinal:?Hemorrhoids?denies.?Stomach/Abdominal pain?denies.?Dark blood stool?denies.?Irritable bowel ?denies.?Constipation?denies.?Diarrhea?denies.?Hematology:?Swelling?denies.?Clots?denies.?Varicose Veins?admits.?Bruising?denies.?Bleeding problem?denies.?Genitourinary:?Blood urine?denies.?Frequent/Painfu/urination/bladder control?denies.?Kidney stones?denies.?Infection (UTI)?denies.?Nephropathy?denies.?sex trans dis (STD)?denies.?Prostate?denies.?Musculoskeletal:?Hammertoes?denies.?Bunions?denies.?Back Pain?admits.?Muscle Cramps/ Resting?admits.?Muscle cramps / walking?admits.?Generalized aches and pains?denies.?Weakness?denies.?Integ.:?Murphy?denies.?Scars?denies.?Corns/calluses?denies.?Ingrown nails?admits.?Painful nails?admits.?Open Sores?denies.?Rashes?denies.?Neurologic:?Difficulty sleeping?denies.?Brain disorder?denies.?Numbness?denies.?Balance trouble?denies.?Confusion?denies.?Fainting/blackouts?denies.?Tingling?denies.?Tr emors?denies.? * Medical History:? * Surgical History:?cholecyste ctomy mastoidectomy 1987tympanoplasty 1987, 2017prosthetic ear bones 2017 * Hospitalization/Major Diagno stic Procedure:?Denies Past Hospitalization * Family History:?Mother: aliv e, poor circulation, high blood pressure, diabetes.?Father: alive, diabetes, Foot problems.?Paternal uncle: diabetes.?Paternal Grand Mother: diagnosed with Family history of arthritis.?Paternal Grand Father: diagnosed with Family history of arthritis.?Siblings: diagnosed with Unspecified essential hypertension.? * Social History:?Tobacco Use:?Tobacco use other than smoking?Are you an other tobacco user??No ?Tobacco Control (Standard)?Tobacco use:?Current smoker ?How often do you smoke cigarettes??Every day ?How many cigarettes a day do you smoke??5 or less ?How soon after you wake up do you smoke your first cigarette??After 60 minutes ?Are you interested in quitting??Thinking about quitting ???Drugs/Alcohol:?Drugs?Have you used drugs other than those for medical reasons in the past 12 months??No ???Miscellaneous:?Caffeine: yes. ?Children: no. ?Exercise: no. ?Marital status: . 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 ???Drug/Alcohol:?AUDIT-C (Standard)?Did you have a drink containing alcohol in the past year??No ?Points?0 ?Interpretation?Negative * Medications:?TakingOmeprazol e Fluoxetine hydroCHLOROthiazide Losartan Potassium Medication List reviewed and reconciled with the patientTaking Omeprazole Taking Fluoxetine Taking hydroCHLOROthiazide Taking Losartan Potassium Medication List reviewed and reconciled with the patient * Allergies:?PenicillinAspirin Ha[Allergies Verified] Objective: * Vitals:?Ht: 5 ft 9 in, Wt:29 0, BMI:42.82, Shoe size: 12, BP:130/80mm Hg, Ht-cm: 175.26 cm, Wt-k.54 kg. * Examination: ???Nails: ?NAILS are:?Elongated, overgrown, dystrophic, lytic, greater than 3mm thick, discolored and friable with crumbly malodorous subungual debris, with pain on palpation, TA, T1, T2, T3, T4, T5, T6, T7, T8, T9.?Dermatologic: ?SKIN FINDINGS:? Skin shows sign(s) of, erythema, scaling, in a moccasin fashion, no fissure(s) present, B/L,??The interspaces are without any cuts , B/L.?VERRUCA:?, Reveals Multiple ( 2), multi-loculated , mosaic-patterned, round, raised, flat-topped, petechial bleeding papule(s), with cauliflower appearance and interruption of skin lines, with pain to lateral compression, and size estimated at 4mm diameter, plantar Midfoot, B/L.?General Examination: ?GENERAL APPEARANCE:?Reveals a pleasant, alert, well nourished, well- developed, well hydrated individual, who demonstrates proper attention to hygiene/body habitus, and is in no acute distress, Pt serves as own historian for office visit today.?ORIENTED:?person, place, and time.?Neurological: ?SENSORY:?Neurological exam reveals intact sensorium, pain sensation normal, vibration sensation intact, pinprick sensation is normal in the lower extremities, Pt denies, anesthesia, burning, paresthesia, tingling, B/L.?Vascular: ?DP PULSES (B):?3/4, B/L.?PT PULSES (B):?3/4, B/L.?CAPILLARY FILL TIME:?immediate, all digits, B/L.?TROPHIC CONDITION-TEXTURE/ELASTICITY/TURGOR/HAIR GROWTH (B):?normal, B/L.?TEMPERTURE GRADIENT (C):?normal, warm to cool, proximal to distal, B/L, B/L.?PIGMENTATION:?normal, B/L.?Orthopedic: ?MUSCLE STRENGTH:?5/5 all groups in a symmetrical fashion, B/L.? Assessment: * Assessment: 1.?Onychomycosis - B35.1 (Pr imary)???Specify :Rx Management (4)???2.?Tinea pedis of both feet - B35.3???Specify :Acute problem, Uncomplicated (3),Rx drug management (4)???3.?Right foot pain - M79.671???4.?Plantar wart - B07.0 ??5.?Left foot pain - M79.672??? Plan: * Treatment: * Procedures:?Wart Treatment:?Procedure?Verruca, as described in exam, were debrided to pin-point bleeding margins with sterile 15 surgical blade, silver nitrate chemocautery applied, recomm. immune-boosting meds such as zinc, recomm. follow up with topical chemosurgical agents, Pt defers any other forms of tx - 12929.? * Procedure Codes:?29649 Wart Destruction, 1-14, Modifiers: XS * Preventive Medicine:? ??Counseling:?Tobacco use:?Type of Tobacco Use Cessation Counseling provided?Smoking effects education ?Patient counseled on the dangers of smoking and urged to quit:?04/27/2024 ?Discussion:?-04: Office or other outpatient visit for the evaluation and management of a new patient, which required a medically appropriate history and/or examination and MODERATE level of DECISION MAKING for: 1 OR MORE CHRONIC PROBLEM(S) THATS WORSENING, 2 STABLE CHRONIC PROBLEMS, A NEWLY DIAGNOSED PROBLEM WITH UNCERTAIN PROGNOSIS, AN ACUTE COMPLICATED INJURY WITH MULTIPLE TREATMENT OPTIONS, OR AN ACUTE PROBLEM WITH ACCOMPANYING SYSTEMIC SYMPTOMS, THAT POSE(S) A MODERATE RISK OF MORBIDITY. THIS CONDITION MAY ALSO INCLUDE RX DRUG MANAGEMENT, OR A DECISON FOR MINOR SURGERY. The visit on the day of the encounter encompassed interpreting the data and educating the patient as to the nature of their condition, treatment options available according to their individual PMH, meds, allergies, and overall health/living conditions, as well as any potential risks or complications that may occur from a failure to adhere to, and participate in, the recommended course of therapy. The discussion included a complete verbal, and/or written explanation of the examination results, any x-rays taken, the proposed diagnosis, and outline of the treatment plan. A schedule for future care needs was also explained. The patient verbalized an understanding of the instructions at this time and agreed to be an active participant in their treatment. If the patient should think of any questions or concerns after the visit, I have encouraged the patient to call the office.?Fungal Nail Counseling:?The patient was counseled on the diagnosis, potential etiologies (including, but not limited to, environmental factors, genetic, immune deficiency), and the multiple treatment options for Onychomycosis. We discussed the risks and benefits of each option from performing no treatment, to ultraviolet light shoe treatment, to laser nail treatment, to applying topical antifungals, to taking oral antifungal medication, to surgical removal of the involved nail(s) with or without performing a matricectomy, or any combination thereof. We discussed the advantages and disadvantages of each of possible treatment and importance for adherence to all the recommended therapies for optimum success. This includes the necessity for weekly emery board self nail home debridements, and control the nail and skin environment as much as possible by only using a fresh, dry pair of shoes/socks each day, as well as keeping the skin as dry as possible through the use of sprays/powders if necessary. The patient was instructed to discard the emery board after use to prevent reinfection of the involved nail(s). We discussed the mycological and visual clinical effectiveness of topical vs oral antifungal treatments as well as each ones potential side effects and/or any patient- specific medication interactions. We discussed the reasons behind the important requirement of regular liver function testing with oral antifungal therapy for safety. Patient questions regarding use, dosage, successful outcomes, blood tests, and possible pharmaceutical interactions were reviewed and the patient verbalized that all answers were clearly understood, The Pt prefers PO treatment, An LFT was ordered in preparation for Lamisil prescription therapy.?Tinea Pedis:?The patient was counseled on the diagnosis, potential etiologies, and treatment options for their skin condition. We discussed the risks and benefits of each option from performing no treatment, to utilizing OTC topical skin creams, prescription topical creams, customized compounded topical medications, and, if necessary, to utilize oral antifungal therapy. We discussed the advantages and disadvantages of each possible treatment and importance for adherence to all the recommended therapies for optimum success and avoid potential complications such as open sore/infection/possible hospitalization. We discussed the potential effectiveness of each topical preparation as well as each ones possible side effects and/or patient medication interactions if oral therapy is selected. Patient questions re: the advantages and disadvantages of each treatment choice, medication use/dosage, successful outcomes, and application consistency were reviewed and the patient verbalized that all answers were clearly understood. The patient was told they can help alleviate symptoms by utilizing moisture absorbant innersoles with activated charcoal and baking soda, applying antifungal sprays daily, aerating toe web spaces at night by putting cotton or lambs wool between the toes, alternating shoe gear daily if possible so they can dry out, changing socks at least once during the day, wearing well-ventilated shoes or sandals. The patient has decided to apply antifungal skin creams to their feet as directed. Rx was sent to their pharmacy at the time of visit.?Verruca:?The patient was counseled on the diagnosis, numerous treatment options re: Verruca Plantaris and the fact that the lesions are caused by a virus and the difficulty in treating and the time that may be required. Recom Zinc to supplement the immune system.? ??Screening/Special Tests:?Fall Risk?Screening:?No falls in the past year ?FALLS: Screening for Future Fall Risk?Have you had any falls with injury in the past year??No * Follow Up:?2-3 Months * Images: * Sign off status: Completed true * Provider:?Henny Ballard, DPM Date:? Generated for Lilly osullivan/Kendra/Joni on:?06/28/2024 02:07 PM EDT History and Physical Notes * HPI (History of Present Illness) Category Sub-Category Detail Notes Category Not es Painful Nails Aggravated by: shoegear causing difficulty standing/walking Course: worse Nature: aching, tender, disc olored, thick Treatments: OTC Topical Antifung al Skin problems Nature: scaling , redness Location: B/L Duration: , several months Treatments: medication ( Ketocon azole) Pt States PCP Visit: DATE: 03/16/2024 Examination Category Sub-Category Detail Notes Category Not es Neurological SENSORY: Neurological exa m reveals intact sensorium, pain sensation normal, vibration sensation intact, pinprick sensation is normal in the lower extremities, Pt denies, anesthesia, burning, paresthesia, tingling, B/L Dermatologic SKIN FINDINGS: Skin shows sign( s) of, erythema, scaling, in a moccasin fashion, no fissure(s) present, B/L, The interspaces are without any cuts , B/L VERRUCA: , Reveals Multiple ( 2), multi-loculated , mosaic-patterned, round, raised, flat-topped, petechial bleeding papule(s), with cauliflower appearance and interruption of skin lines, with pain to lateral compression, and size estimated at 4mm diameter, plantar Midfoot, B/L Orthopedic MUSCLE STRENGTH: 5/5 all groups in a symm etrical fashion, B/L General Examination GENERAL APPEARANCE: Reveals a pleasant, alert, well nourished, well-developed, well hydrated individual, who demonstrates proper attention to hygiene/body habitus, and is in no acute distress, Pt serves as own historian for office visit today ORIENTED: person, place, and t abril Vascular DP PULSES (B): 05/30, B/L PT PULSES (B): 34, B/L CAPILLARY FILL TIME: immediate, all digi ts, B/L TEMPERTURE GRADIENT (C): normal, warm to cool, proximal to distal, B/L, B/L TROPHIC CONDITION-TEXTURE/ELASTICITY/TURGOR/HAIR GROWTH (B): normal, B/L PIGMENTATION: normal, B/L Nails NAILS are: Elongated, overg rown, dystrophic, lytic, greater than 3mm thick, discolored and friable with crumbly malodorous subungual debris, with pain on palpation, TA, T1, T2, T3, T4, T5, T6, T7, T8, T9
--- OUTSIDE RECORDS SUMMARY | 2024-06-28 14:07 | XMS_ITS ---
Author Organization [facility] Address [address] [place] [address] Care Team Providers Care Electric Engine Mechanic Name Role Phone Diego Bajwa MD Primary Care Provider Henny Fierro [phone] REASON FOR VISIT ADMISSION NURSE PPWK Entered Encounters Encounter Location Date Provider Diagnosis [address] [address] 04/05/2024 Henny Ballard Plan Of Treatment Next Appt Details Provider Name:Henny merida, 07/18/2024 03:15:00 PM, [address] [place] [address], [id number], Progress Notes * Ant MCDONALDDOB:1975 ( 48 yo M)Acc No.[id number]:04/05/2024 Patient:?Ant MCDONALD :1975???Age:48 Y???Sex:Male Address:[place], [address] * true * Date:? Generated for Printi ng/Faxing/eTransmitting on:?06/28/2024 02:07 PM EDT
--- OUTSIDE RECORDS SUMMARY | 2024-06-28 14:07 | XMS_ITS ---
Author Organization [facility] Address [address] [place] [address] Care Team Providers Care Emergency Medical Service Coordinator Name Role Phone Diego Bajwa MD Primary Care Provider Henny Fierro [phone] REASON FOR VISIT Lab results Encounters Encounter Location Date Provider Diagnosis [address] [address] 06/23/2024 Henny Ballard Plan Of Treatment Next Appt Details Provider Name:Henny merida, 07/18/2024 03:15:00 PM, [address] [place], [address], Progress Notes * Ant MCDONALDDOB:1975 ( 48 yo M)Acc No.[id number]:06/23/2024 Patient:?Josh MCDONALDley :1975???Age:48 Y???Sex:Male Address:[place], [address] * true * Date:? Generated for Printi abran/Kendra/eTransmitting on:?06/28/2024 02:07 PM EDT
== END 2024-06-28 11:59 | disposition home or self-care (01) ==
LOC: HO.HMCFM 11:30
PROVIDERS: PCP Family Medicine; Visit Provider Family Medicine
DX: I10 Essential (primary) hypertension (principal); R74.8 Abnormal levels of other serum enzymes; E87.6 Hypokalemia; K21.9 Gastro-esophageal reflux disease without esophagitis; Z12.11 Encounter for screening for malignant neoplasm of colon

== ENCOUNTER → 2024-06-28 11:29 | Outpatient (BNVA) | payer OTHER, SELFPAY | PROVIDERS: PCP Family Medicine; Visit Provider Family Medicine | DX: I10 Essential (primary) hypertension (principal); R74.8 Abnormal levels of other serum enzymes; E87.6 Hypokalemia; K21.9 Gastro-esophageal reflux disease without esophagitis; Z79.899 Other long term (current) drug therapy | CPT/HCPCS: 96127 ==

== ENCOUNTER 2024-10-02 06:23 | Outpatient (REF) | payer OTHER, SELFPAY ==
[2024-10-02 12:09] LABS: Alanine Aminotransferase 34 U/L (0-40); Albumin Level 4.1 g/dL (3.5-5.0); Alkaline Phosphatase 109 U/L (39-117); Anion Gap 12 (12-20); Aspartate Amino Transferase 31 U/L (5-37); Blood Urea Nitrogen 10 mg/dL (9-16); Calcium 9.3 mg/dL (8.4-10.2); Carbon Dioxide 29 mmol/L (22-29); Chloride 105 mmol/L (96-108); Cholesterol 126 mg/dL (<200); Estimated Glomerular Filt Rate > 60; HDL Cholesterol 35 mg/dL (>40); Potassium 3.9 mmol/L (3.3-5.1); Sodium 142 mmol/L (135-145); Total Protein 7.0 g/dL (6.5-8.0); Triglycerides 76 mg/dL (<150)
== END 2024-10-02 06:24 | disposition home or self-care (01) ==
LOC: HO.HMGCLDS 06:23
PROVIDERS: PCP Family Medicine; Visit Provider Family Medicine
DX: Z00.00 Encounter for general adult medical examination without abnormal findings (principal); R74.8 Abnormal levels of other serum enzymes
CPT/HCPCS: 36415; 80053; 80061

== ENCOUNTER 2024-10-03 16:19 | Outpatient (AMB) | payer OTHER, SELFPAY ==
--- OUTSIDE RECORDS SUMMARY | 2024-07-18 11:15 | XMS_ITS ---
Author Organization [facility] Address [address] [place] [address] Care Team Providers Care Drum Attendant Name Role Phone Garett ARNETT, Diego Primary Care Provider Henny Fierro Unavailable [phone] Medications Medication SIG (Take, Route, Fr equency, Duration) Notes Start Date End Date Status Fluoxetine Active hydroCHLOROthiazide Active Losartan Potassium A ctive LamISIL 250 MG 1 tablet Orally Once a day; Duration: 30 days Active Omeprazole Active Ketoconazole 2 % 1 application Retread Supervisor ally Once a day to both feet; Duration: 30 days 04/27/2024 Active Encounters Encounter Location Date Provider Diagnosis [address] [address] 07/18/2024 Henny Ballard Plan Of Treatment No Information Progress Notes * Ant MCDONALDDOB:1975 ( 48 yo M)Acc No.[id number]:07/18/2024 Progress Note Patient: Ant QUEZADA Provider: Janes Ballard DPM :1975 A ge:48 Y S ex:Male Date:07/18/2024 Address:[id number] Pcp:Diego Bajwa MD Subjective: * Chief Complaints: * * HPI: S kin problems: Pt States PCP Visit: D ATE 1 05/17/2023 Nature: s caling , redness. Location: B /L . Duration: , several months. Treatments: m edication ( Ketoconazole). * Medical History: * Medications: T aking Omeprazole , Taking Fluoxetine , Taking hydroCHLOROthiazide , Taking Losartan Potassium , Taking LamISIL 250 MG Tablet 1 tablet Orally Once a day , Taking Ketoconazole 2 % Cream 1 application Externally Once a day to both feet Objective: * Vitals: Assessment: Plan: * Treatment: * Images: * The named appointment provid er may or may not be the originator of this progress note, and it is not deemed complete until electronically signed by the appointment provider. Sign off status: Pending * Provider: Janes Ballard DPM Date: 0 07/18/2024 Generated for Lilly osullivan/Kendra/Joni on: 0 10/03/2024 04:21 PM EDT History and Physical Notes * HPI (History of Present Illness) Category Sub-Category Detail Notes Category Not es Skin problems Nature: scaling , redness Location: B/L Duration: , several months Treatments: medication ( Ketocon azole) Pt States PCP Visit: DATE: 03/16/2024
--- OUTSIDE RECORDS SUMMARY | 2024-10-03 16:21 | XMS_ITS | Data Portability ---
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 Otorrhea and mastoid debris removed today. Otologic exam demonstrates right EAC with purulent otorrhea, edema, and small area of granulation. Right TM has distorted landmarks with acute infection. Left EAC is dry without obstruction. Left TM is intact with cartilage graft in posterosuperior quadrant and partial ossicular replacement prosthesis, stable from previous exam. Recommend topical CiproDex and Clotrimazole twice daily for 14 days in right ear. Patient will return for revaluation in 2-3 weeks to assess for infection resolution. If symptoms persist, he may require Lotrisone ointment at next visit. [email or web address] Not available 02/16/2024 09:38:39 03/07/2024 03/07/2024 48 year old male with a history of right canal wall down mastoidectomy and is s/p left tympano-ossiculopl asty with cartilage graft on 02/12/17 presents for evaluation of right otorrhea. Patient reports symptoms resolved with topical CiproDex and Clotrimazole. EACs are without obstruction or otorrhea. Right mastoid cavity is dry without squamous debris. Right TM with 15% dry inferior perforation. Left TM is intact with cartilage graft in posterosuperior quadrant and partial ossicular replacement prosthesis, stable from previous exam. Recommend continuing dry ear precautions due to his propensity for otorrhea. Patient requests to follow up with Dr. Corado for routine ear examination. claudia Not available 03/07/2024 16:11:41 05/30/2024 05/30/2024 48 year old male with a history of right canal wall down mastoidectomy and is s/p left tympano-ossiculopl asty with cartilage graft on 02/12/17 presents for evaluation right canal wall down mastoidectomy cavity. The cavity was debrided today of squamous epithelial debris. In addition, an area of granulation tissue was cauterized with silver nitrate along the facial ridge. Otherwise no signs of infection. Left TM is intact with cartilage graft in posterosuperior quadrant and partial ossicular replacement prosthesis, stable from previous exam. Patient will follow-up in 6 months for next routine preventative mastoid debridement Not available 05/30/2024 09:33:16 Plan of Treatment Reminders Order Date Submit Date Provider Last Modified By Organization Details Last Modified Time Details Appointments Establish ed 10 2024 03:30P M JANELL CORADO MD Not available Not available Not available Lab None recorded. Referral None recorded. Procedures None recorded. Surgeries None recorded. Imaging None recorded. Medication Orders Ciprodex 0.3 %-0.1 % ear drops,adelina pension 2023 025 [place]O [facility][id number], [address] [place], [place], [phone], 05/30/2024 09:01:41 clotrimaz ole 1 % topical solution 2023 025 [place] [facility][id number], [address] [place], [place], [phone], 05/30/2024 09:01:55 Patient TargetsNo targets recorded. Patient InstructionsNo instructions recorded. Reason for Referral None Reported. 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 Other disorder s followin g mastoide ctomy, right ear; Note: Date Diagnose d: 5 11:43 AM (H95.191 ) Not Available [facility] 4 02:33:25 Dysphagi a 62507089 Active 2021 Dysphagi a, unspecif ied; Note: Date Diagnose d: 2 1:56 PM (R13.10) Not Available [facility] 4 02:33:29 Adhesive middle ear disease 8630207 Active 2015 Adhesive left middle ear disease; Note: Date Diagnose d: 01/07/20 16 5:50 PM (H74.12) Not Available [facility] 4 02:33:26 Dysfunct ion of eustachi an tube 97895625 Active 2014 Eustachi an tube dysfunct ion; Note: Date Diagnose d: 07/31/2014 2:48 PM (381.81) Not Available [facility] 4 02:33:34 Otorrhea of right ear 97437112565 72562 Completed 202210/29/2023 Otorrhea , right ear; Note: Date Diagnose d: 01/08/20 23 4:18 PM (H92.11) Otorrh ea, right ear; Note: Date Diagnose d: 3 3:56 PM (H92.11) ; Start Date : 05/12/19 23 JANELL CORADO MD [address] [place] [address], [facility] [place], [address] , [facility] [facility] [facility] 4 12:58:50 Partial loss of ear ossicles 05880161 Active 2016 Partial loss of ear ossicles , left ear; Note: Date Diagnose d: 01/22/20 17 4:19 PM (H74.322 ) Partia l loss of ear ossicles , bilatera l; Note: Date Diagnose d: 5 1:18 PM (H74.323 ) ; Start Date : 12/28/19 15 Not Available [facility] 4 02:33:35 Obstruct haider sleep apnea syndrome 26856399 Active 2014 TERE; Note: Date Diagnose d: 08/28/2014 4:19 PM (327.23) Not Available [facility] 4 02:33:48 Seasonal allergic rhinitis 697169405 Active 2022 Other seasonal allergic rhinitis ; Note: Date Diagnose d: 04/06/2022 3:03 PM (J30.2) Not Available [facility] 4 02:33:51 Pain of right temporom andibula r joint 49066253155 394342 Active 2021 Arthralg ia of right temporom andibula r joint; Note: Date Diagnose d: 07/29/2021 11:12 AM (M26.621 ) Not Available [facility] 4 02:33:43 Multiple perforat ions of right tympanic membrane 79393108154 91581 Active 2014 Multiple perforat ions of tympanic membrane , right ear; Note: Date Diagnose d: 5 1:18 PM (H72.811 ) Not Available [facility] 4 02:33:37 Postoper ative follow-u p visit Active 2015 Post op; Note: Date Diagnose d: 6 2:15 PM (V67.00) Not Available [facility] 4 02:33:41 Acute sinusiti s 66158752 Active 2016 Other acute sinusiti s; Note: Date Diagnose d: 6 3:50 PM (J01.80) ; Start Date : 10/10/19 16 Acute sinusiti s, unspecif ied; Note: Date Diagnose d: 7 4:43 PM (J01.90) Not Available [facility] 4 02:33:24 Mixed conducti ve and sensorin eural hearing loss, bilatera l 480447357 Active 2014 Hearing loss: Mixed hearing loss, bilatera l; Note: Date Diagnose d: 11/02/2014 3:02 PM (389.22) Mixed conducti ve and sensorin eural hearing loss, bilatera l; Note: Date Diagnose d: 11/02/2014 3:02 PM (H90.6) Not Available [facility] 4 02:33:43 Otalgia of right ear 8062584025 Active 2021 Otalgia, right ear; Note: Date Diagnose d: 07/29/2021 11:12 AM (H92.01) Not Available [facility] 4 02:33:39 Perforat ion of tympanic membrane 07245992 Active 2015 Perforat ion of tympanic membrane ; Note: Date Diagnose d: 6 2:15 PM (384.20) Not Available [facility] 4 02:33:51 Sensorin eural hearing loss in left ear 66329130330 109 Active 2016 Sensorin eural hearing loss, unilater al, left ear, with restrict ed hearing on the contrala teral side; Note: Date Diagnose d: 03/23/20 17 4:06 PM (H90.A22 ) Not Available [facility] 4 02:33:31 Follow-u p visit Active 2016 Medical surveill ance followin g complete d treatmen t; Note: Date Diagnose d: 02/23/20 17 10:57 AM (Z09) Encoun ter for follow-u p examinat ion after complete d treatmen t for conditio ns other than malignan t neoplasm ; Note: Date Diagnose d: 6 10:40 AM (Z09) ; Start Date : 07/22/19 16 Not Available [facility] 4 02:33:49 Granulat ions of mastoid cavity 455250588 Active 2022 Granulat ion of postmast oidectom y cavity, right ear; Note: Date Diagnose d: 3 3:56 PM (H95.121 ) Granul ation of postmast oidectom y cavity, right ear; Note: Date Diagnose d: 03/14/20 15 12:00 PM (H95.121 ) ; Start Date : 03/14/20 15 Not Available [facility] 4 02:33:35 Impacted cerumen in left ear 28104610259 37697 Active 2018 Impacted cerumen, left ear; Note: Date Diagnose d: 07/28/2018 3:42 PM (H61.22) Not Available [facility] 4 02:33:51 Superfic ial mycosis 579365194 Completed 202310/29/2023 Other specifie d superfic ial mycoses; Note: Date Diagnose d: 4 4:13 PM (B36.8) Not Available [facility] 4 02:33:30 Acute infectiv e otitis externa 111159934 Active [address]23 JOSE WYMAN PA-C [address] [facility],[place] [address], [place], [address] , [place] - [facility] 4 09:14:58 Otorrhea of right ear 94212963919 26918 Active 2023 Otorrhea , right ear; Note: Date Diagnose d: 01/08/20 23 4:18 PM (H92.11) Otorrh ea, right ear; Note: Date Diagnose d: 3 3:56 PM (H92.11) ; Start Date : 05/12/19 23 JANELL CORADO MD [address] [facility],[place] [address], [place], [address] , [place] - [facility] 4 12:58:50 Granulat ion of right mastoid cavity Active 2023 JANELL CORADO MD [address] [facility],[place] [address], [place], [address] , [place] - [facility] 4 12:59:17 Problem Notes None recorded. Procedures Surgical History Date Name Laterality Status Provider Name and Address Organization Details Recorded Time 5 Debridement of Mastoid Cavity complex right completed JANELL CORADO MD [address] [place] [address],[place] [address], [place], [address], [facility] - [facility] 05/30/2024 09:34:23 4 Debridement of Mastoid Cavity right completed JANELL CORADO MD [address] [facility],[place] [address], [place], [address], [place] - [facility] 02/17/2024 12:58:18 Imaging Results None recorded. Procedure Notes None recorded. Medical Equipment None Reported. Allergies Allergen ID Allergen Name Allergen Category Reaction Reaction Severity Criticality Documentation Date Start Date Code Code System Note Provider Name and Address Organization Details Recorded Time 99742 aspirin medicatio n hives Not available Not available 08/10/2023 1191 RxNorm React ion: Hives ; Not Available [facility] 4 00:56:16 19197 Non-stero idal anti-infl ammatory agent (product) medicatio n hives Not available Not available 08/10/2023 39541 005 SNOMED React ion: hives ; Not Available [facility] 4 00:56:17 45331 penicilli n V potassium medicatio n hives Not available Not available 08/10/202383542 5 RxNorm React ion: Hives ; Not Available [facility] 4 00:56:21 Medications Name Sig Start Date Stop Date Status Note LastModified by Organization Details LastModified Time clonidine HCl 0.1 mg tablet 07/29 completed Medicati on ID: [id number] D uration Value: 15 Brand Name: clonidin e HCl Send Method: E-Prescr ibed Sub s Allowed: subs OK Speci al Instruct ion: TAKE 1 - 2 TABS EVERY 8 HOURS NEEDED ANXIETY OR INSOMNIA ORALLY 30 DAY(S) M wendi Varelaeneric Name: clonidin e HCl Not Available Not Available Not Available prednison e 10 mg tablet TAKE 3 TABS TWICE DAILY X3 DAYS, THEN 2 TABS TWICE DAILY X3 DAYS, THEN 1 TAB TWICE DAILY UNTIL GONE 05/30 completed Not Available Not Available Not Available doxycycli ne hyclate 100 mg capsule TAKE 1 CAPSULE BY MOUTH TWICE DAILY 05/30 completed Not Available Not Available Not Available prednisol one sodium phosphate 15 mg/5 mL (3 mg/mL) oral solution 09/16 completed Medicati on ID: [id number] Du ration Value: 5 Reason: () Brand Name: predniso lone sodium phosphat e Send Method: E-Prescr ibed Sub s Allowed: subs OK Speci al Instruct ion: TAKE 10 MLS TWICE A DAY Medi cationGe nericNam e: predniso lone sodium phosphat e Not Available Not Available Not Available clarithro mycin 500 mg tablet 07/18 completed Medicati on ID: [id number] Du ration Value: 10 Brand Name: clarithr omycin S end Method: E-Prescr ibed Sub s Allowed: subs OK Speci al Instruct ion: TAKE 1 TABLET BY MOUTH TWICE A DAY Medi cationGe nericNam e: clarithr omycin Not Available Not Available Not Available Claritin 10 mg tablet Take 1 tablet once a day 05/30 completed Medicati on ID: [id number] D uration Value: 30 Brand Name: Claritin Send Method: E-Prescr ibed Sub s Allowed: subs OK Medic ationGen ericName : Claritin Not Available Not Available Not Available prednison e 20 mg tablet TAKE 2 TABLETS BY MOUTH EVERY DAY FOR 5 DAYS 05/30 completed Not Available Not Available Not Available hydroxyzi ne pamoate 50 mg capsule active Medicati on ID: [id number] B rand Name: hydroxyz ine pamoate Send Method: E-Prescr ibed Sub s Allowed: subs OK Medic ationGen ericName : hydroxyz ine pamoate Not Available Not Available Not Available amlodipin e 2.5 mg tablet 07/29 completed Medicati on ID: [id number] D uration Value: 90 Brand Name: amlodipi ne Send Method: E-Prescr ibed Sub s Allowed: subs OK Medic ationGen ericName : amlodipi ne Not Available Not Available Not Available Ciloxan 0.3 % eye drops 05/30 completed Medicati on ID: [id number] D uration Value: 10 Prescri bed By Name: KARIN Mendez nd Name: Ciloxan Send Method: E-Prescr ibed Sub s Allowed: subs OK Speci al Instruct ion: Instill 4 drops twice a day into the affected ear. Med icationG enericNa me: Ciloxan Not Available Not Available Not Available losartan 100 mg-hydroc hlorothia zide 25 mg tablet TAKE 1 TABLET BY MOUTH DAILY active Not Available Not Available No t Available tamsulosi n 0.4 mg capsule 06/08 completed Medicati on ID: [id number] B rand Name: tamsulos in Send Method: E-Prescr ibed Sub s Allowed: subs OK Medic ationGen ericName : tamsulos in Not Available Not Available Not Available antipyrin e-benzoca ine 5.4 %-1.4 % ear drops 09/16 completed Medicati on ID: [id number] Du ration Value: 30 Reason: () Brand Name: antipyri ne-benzo trevor Se nd Method: E-Prescr ibed Sub s Allowed: subs OK Speci al Instruct ion: INSTILL 2 DROPS EVERY 6 HOURS Me dication GenericN benjamin: antipyri ne-benzo trevor Not Available Not Available Not Available losartan 25 mg tablet 07/28 completed Medicati on ID: [id number] R mira: () Brand Name: losartan Send Method: E-Prescr ibed Sub s Allowed: subs OK Medic ationGen ericName : losartan Not Available Not Available Not Available clotrimaz ole 1 % topical solution 4 DROPS INTO RIGHT EAR TWICE DAILY FOR 14 DAYS 05/30 completed Not Available Not Available Not Available fluoxetin e 10 mg capsule TAKE 1 CAPSULE BY MOUTH DAILY active Not Available Not Available No t Available omeprazol e 20 mg capsule,d elayed release TAKE 1 CAPSULE BY MOUTH EVERY DAY active Not Available Not Available No t Available hydrochlo rothiazid e 25 mg tablet TAKE 1 TABLET BY MOUTH EVERY MORNING 05/30 completed Not Available Not Available Not Available polyethyl vincent glycol 3350 17 gram/dose oral powder USE DIRECTED BY GASTROEN TEROLOGY DEPT. AT [facility] 05/30 completed Not Available Not Available Not Available albuterol sulfate HFA 90 mcg/actua tion aerosol inhaler TAKE 2 PUFFS BY MOUTH EVERY 4 TO 6 HOURS NEEDED FOR SHORTNES S OF BREATH OR WHEEZING FOR 30 DAYS 05/30 completed Not Available Not Available Not Available ketoconaz ole 2 % topical cream APPLY TOPICALL Y TO BOTH FEET DAILY active Not Available Not Available No t Available Conifer 5 mg-325 mg tablet 1-2 tablet by mouth 05/30 completed Medicati on ID: [id number] D uration Value: 7 Prescri bed By Name: Janell Corado M.D. Bra nd Name: Conifer Se nd Method: E-Prescr ibed Sub s Allowed: subs OK Medic ationGen ericName : Conifer Not Available Not Available Not Available doxycycli ne hyclate 100 mg tablet 1 tablet by mouth 05/30 completed Medicati on ID: [id number] D uration Value: 10 Prescri bed By Name: Liam Thomason nd Name: doxycycl ine hyclate Send Method: E-Prescr ibed Sub s Allowed: subs OK Medic ationGen ericName : doxycycl ine hyclate Not Available Not Available Not Available ipratropi um bromide 21 mcg (0.03 %) nasal spray [place] 2 spray into both nostrils three times a day 05/30 completed Medicati on ID: [id number] D uration Value: 30 Brand Name: ipratrop ium bromide Send Method: E-Prescr ibed Sub s Allowed: subs OK Medic ationGen ericName : ipratrop ium bromide Not Available Not Available Not Available buspirone 15 mg tablet 07/27 completed Medicati on ID: [id number] D uration Value: 30 Reason: () Brand Name: buspiron e Send Method: E-Prescr ibed Sub s Allowed: subs OK Speci al Instruct ion: TAKE 1 TABLET BY MOUTH EVERY 12 HOURS Me dication GenericN benjamin: buspiron e Not Available Not Available Not Available tobramyci n 0.3 %-dexamet hasone 0.1 % eye drops,adelina pension SHAKE LIQUID AND INSTILL 4 DROPS TO RIGHT EAR TWICE DAILY FOR 14 DAYS 05/30 completed Not Available Not Available Not Available Laxative (bisacody l) 5 mg tablet TAKE 2 TABLETS BY MOUTH AT BEDTIME active Not Available Not Available No t Available ciproflox acin 0.3 %-dexamet hasone 0.1 % ear drops,adelina pension 4 DROPS INTO RIGHT EAR TWICE DAILY FOR 14 DAYS 05/30 completed Not Available Not Available Not Available cholecalc iferol (vitamin D3) 25 mcg (1,000 unit) tablet 06/08 completed Medicati on ID: [id number] D uration Value: 30 Brand Name: cholecal ciferol (vitamin D3) Send Method: E-Prescr ibed Sub s Allowed: subs OK Speci al Instruct ion: TAKE 1 TABLET BY MOUTH EVERY DAY Medi cationGe nericNam e: cholecal ciferol (vitamin D3) Not Available Not Available Not Available buprenorp shannon 8 mg-naloxo ne 2 mg sublingua l film DISSOLVE 1 FILM UNDER TONGUE TWICE A DAY active Not Available Not Available No t Available EpiPen 2-Elliott 0.3 mg/0.3 mL injection , auto-inje ctor Inject 1 pen injector intramus cularly single dose 05/30 completed Medicati on ID: [id number] D uration Value: 1 Brand Name: EpiPen 2-Elliott Se nd Method: E-Prescr ibed Sub s Allowed: subs OK Medic ationGen ericName : EpiPen 2-Elliott Not Available Not Available Not Available guaifenes in ER 600 mg tablet, extended release 12 hr TAKE 1 TABLET BY MOUTH EVERY 12 HOURS 05/30 completed Not Available Not Available Not Available naloxone 4 mg/actuat ion nasal spray SPRAY 0.1 ML INTRANAS ALLY FOR OPIOID OVERDOSE . REPEAT IN 3 MINUTES IF NO OR MINIMAL RESPONSE 05/30 completed Not Available Not Available Not Available Vitals Date Recorded Body height Body weight Provider Name and Address Organization Details Last Updated DateTime 05/30/2024 175.26 cm 739909.79 g April Combs [place] - [facility] 05/30/2024 09:01:22 Date Recorded Body height Body mass index (BMI) Body weight Provider Name and Address Organization Details Last Updated DateTime 02/16/2024 175.26 cm 42.8 kg/m2 822599.79 g Sanket Henry [place] - [facility] 02/16/2024 08:51:30 Date Recorded Body height Body mass index (BMI) Body weight Provider Name and Address Organization Details Last Updated DateTime 03/07/2024 175.26 cm 42.8 kg/m2 315089.79 g Angeles Gibson [place] - [facility] 03/07/2024 15:41:54 Social History None recorded. Functional Status None recorded. Mental Status None recorded. Family History Nothing Reported. Medical History Condition Response Allergies/Hayfever Y Hypertension Y Sleep Disorder Y Past Encounters Encounter ID Performer Location Encounter Start Date Encounter Closed Date Diagnosis/Indication Diagnosis SNOMED-CT Code Diagnosis ICD10 Code Diagnosis Note [id number] JOSE WYMAN PA-C [facility] [address] [address] 02/16/2024 08:48:02 02/16/2024 09:18:56 Acute infective otitis externa 387927371 H60.399 Postmastoi dectomy complication 02900389 H95.191 Otorrhea of right ear 10 77861590 443454 H92.11 Granulatio n of right mastoid cavity 5151976091 149964 H95.121 [id number] JOSE WYMAN PA-C [facility] [address] [address] 03/07/2024 15:25:51 03/07/2024 15:57:58 Adhesive middle ear disease 4454004 H74.12 Mixed cond uctive and sensorineural hearing loss, bilateral 483359021 H90.6 Multiple p erforations of right tympanic membrane 0290862953 199411 H72.811 Partial lo ss of ear ossicles 58181452 H74.322 H74.323 Postmastoi dectomy complication 12710152 H95.191 [id number] JANELL CORADO MD [facility] [address] [address] 05/30/2024 08:53:32 05/30/2024 09:32:29 Multiple perforations of right tympanic membrane 3621235594 357685 H72.811 Partial lo ss of ear ossicles 99585838 H74.322 H74.323 Postmastoi dectomy complication 09031215 H95.191 Granulatio n of right mastoid cavity 8369320205 890971 H95.121 Health Concerns Section Related Observation LastModified by Organization Detai ls LastModified Time None Recorded Concern Status LastModified by Organization Details LastModified Time None Recorded Advance Directives Directive None Recorded Payers Insurance Date Sequence Insurance Name Policy Number Policy Gomez Covered Member ID Gomez Member ID Guarantor Name 05/27/[address] [place] [address] [id number] Ant Mcdonald [id number] Ant Mcdonald Notes Date Note Type Note Provider Name and Address Organization Details Recorded Time 02/16/2024 text/html 48 year old male with a history of right canal wall down mastoidectomy and is s/p left tympano-ossiculopla sty with cartilage graft on 02/12/17 presents for evaluation for right sided otorrhea. This started one month ago. He reports associated right otalgia and muffled hearing. He has a history of fungal otitis externa. He has not trialed medication for this episode. JANELL CORADO MD [address] [facility],[address], [address], [place] - [facility] 02/17/2024 12:59:42 03/07/2024 text/html 48 year old male with a history of right canal wall down mastoidectomy and s/p left tympano-ossiculopla sty with cartilage graft on 02/12/17 presents for re-evaluation for right otorrhea. He trialed topical CiproDex and Clotrimazole twice daily for 14 days in right ear. He reports significant symptom improvement. He denies otalgia, otorrhea, or hearing changes. JANELL CORADO MD [address] [facility],[address], [address], [facility] - [facility] 03/07/2024 17:16:26 05/30/2024 text/html 48 year old male with a history of right canal wall down mastoidectomy and s/p left tympano-ossiculopla sty with cartilage graft on 02/12/17 presents for re-evaluation for right otorrhea. He trialed topical CiproDex and Clotrimazole twice daily for 14 days in right ear back in February. He reports significant symptom improvement. No current otorrhea, but the patient is reporting some postauricular soreness. JANELL CORADO MD [address] [facility],[address], [address], [facility] - [facility] 05/30/2024 09:35:16
--- NOTE | 2024-10-03 16:27 | A.OFFPC_ITS ---
Vital Signs 10/03/24 16:30 Height 5 ft 10 in Weight 313 lb BMI 44.9 BP 118/72 Blood Pressure Location Rt brachial Position Sitting Respiration 14 Pulse 72 Pulse Source Pulse Oximeter Temp 98.7 F Temp Source Temporal Artery Scan Pulse Oximetry (%) 97 Oxygen Delivery Method Room Air Intake Visit Reasons: f/u liver enzymes Intake Note: Ant presents in the office today to discuss his liver enzymes. Allergies aspirin (ASPIRIN) Allergy (Severe, Verified 10/03/24 16:28) hives/throat swelling ibuprofen Allergy (Intermediate, Verified 10/03/24 16:28) hives naproxen (Aleve) Allergy (Intermediate, Verified 10/03/24 16:28) hives NSAIDS (Non-Steroidal Anti-Inflamma Allergy (Intermediate, Verified 10/03/24 16:28) Hives penicillin V Allergy (Intermediate, Verified 10/03/24 16:28) hives propranolol Allergy (Intermediate, Verified 10/03/24 16:28) erectile dysfunction Medication List - Last Reconciled 10/03/24 by Diego Bajwa MD albuterol sulfate 90 mcg/actuation (ProAir HFA) 2 puffs inhalation Q4-6H PRN 30 days bisacodyl (Dulcolax (bisacodyl)) 10 mg (2 x 5 mg) PO BEDTIME fluoxetine 10 mg PO DAILY 90 days losartan-hydrochlorothiazide 100-25 mg 1 tab PO DAILY 30 days omeprazole 20 mg PO DAILY 30 days polyethylene glycol 3350 (Miralax) 238 grams PO ONCE Tobacco use date assessed: 10/03/24 Dental Screening Dental Screen Date: 10/03/24 Did you have a dental visit in the last 12 months?: No Did you have a dental problem in the last 6 months where you did not have access to dental care?: No Was dental information given to patient?: Patient declined HPI f/u liver enzymes HPI Details 48 y/o male presents to f/u elevated salo er enzymes, hypertension. Blood pressure today 118/72, 72p. He is on losartan-HCTZ 100-25mg daily. Labs drawn 10/02/24. Reviewed labs with pt. Triglycerides 76. TC 126. LDL 76. HDL low at 35. Fasting glucose 104. Liver enzymes improved - AST 31, ALT 34. [facility] Medical History (Updated 10/03/24 @ 17:14 by Thony Palumbo) Anxiety GERD (gastroesophageal reflux disease) Sleep apnea HTN (hypertension) Surgical History History of tonsillectomy and adenoidectomy History of tympanoplasty of left ear History of mastoidectomy Cholesteatoma of attic, right ear Family History (Updated 10/03/24 @ 16:29 by Kenna Swain MA) Brother FHx: mental illness Social History (Updated 10/03/24 @ 16:30 by Kenna Swain MA) Housing: House Alcohol intake: never Patient Tobacco Use Status: Current everyday Tobacco user Cigarettes Per Day: 7 e-Cigarette/Vaping Use: Never Used Second Hand Smoke Exposure: No Use of substances other than those prescribed or required for medical reasons: No service: No Current occupational status: employed Current occupational exposures/hazards: No Cognitive needs: No Hearing needs: No Vision needs: No Questionnaire Thrive Questionnaire Date Thrive assessed: 06/28/24 I am a: Patient What is your living situation today?: I have a steady place to live Within the past 12 months, did the food you bought not last and you didn't have the money to get more?: Never true Within the past 12 months, did you worry whether your food would run out before you got money to buy more?: Never true Do you have trouble paying for medicines?: No Do you have trouble getting transportation to medical appointments?: No Do you have trouble paying your heating and electricity bill?: No Do you have trouble taking care of your child, family member or friend?: No Do you have trouble with day-to-day activities such as bathing, preparing meals, shopping, managing finances, etc.?: No Are you currently unemployed and looking for a job?: No Are you interested in more education?: No Please select the resources that you would like help with: None Currently or been in a relationship where the following occur: No concerns reported THRIVE Score: 0 MONA-7 AMB Questionnaire MONA-7 Date MONA - 7 assessed: 06/28/24 Source: Developed by Drs. Melo Sanches, Candice Tapia, Anibal Peng and colleagues, with an educational eboni from [employer]. Review of Systems Const Denies chills, Denies fatigue, Denies fever(s), Denies headache(s) and Denies weakness ENT Denies dizziness and Denies headache(s) Card Denies dyspnea Resp Denies cough, Denies dyspnea, Denies wheezing and Denies other (shortness of breath) Musc Denies numbness and Denies tingling Neuro Denies dizziness, Denies headache(s), Denies numbness, Denies tingling and Denies weakness Psych Denies anxiety and Denies depression Endo Denies fatigue Aller/Immun Denies wheezing Physical exam (Primary Care) Vital Signs: Last Vital Signs Temp 98.7 F 10/03/24 16:30 Pulse 72 10/03/24 16:30 Resp 14 10/03/24 16:30 BP 118/72 10/03/24 16:30 Pulse Ox 97 10/03/24 16:30 Oxygen Delivery Method Room Air 10/03/24 16:30 BMI result Body Mass Index 44.9 Tobacco/Smoking Status: Tobacco use Status Tobacco use date assessed 10/03/24 10/03/24 16:34 Patient Tobacco Use Status Current everyday Tobacco 10/03/24 16:34 e-Cigarette/Vaping Use Never Used 10/03/24 16:34 Thrive Assessment: Date of Thrive Assessment Date Thrive assessed 06/28/24 10/03/24 16:34 Currently or been in a relationship where the following occur: No concerns reported Const General: well developed; No acute distress Nutritional Appearance: obese morbidly obese Orientation/consciousness: patient oriented x3 HENMT Head: Yes normocephalic and Yes atraumatic Eyes General: appearance normal, both eyes and all related structures Pupils: Equal, round and reactive pupils present EOM: EOMs intact bilaterally Resp Effort & Inspection: normal respiratory effort Neuro General: patient oriented x3 and gait normal Cranial nerves: Yes Equal, round and reactive pupils present Psych Affect: normal affect Coding Level of Care Code Est Pt Level 4 (25286) Diagnoses Essential hypertension I10 Elevated liver enzymes R74.8 Low HDL (under 40) E78.6 Morbid obesity E66.01 Sleep apnea G47.30 Assessment & Plan Assessment & Plan (1) Essential hypertension: Code(s): I10 - Essential (primary) hypertension Category: Medical Plan: Blood pressure is well controlled. Goal is less than 140/90 Continue current medication (2) Elevated liver enzymes: Code(s): R74.8 - Abnormal levels of other serum enzymes Category: Medical Plan: Liver enzymes back in normal range with good hydration. Has not lost any weight yet however and I encouraged this Will continue to monitor periodically (3) Low HDL (under 40): Code(s): E78.6 - Lipoprotein deficiency Category: Medical Plan: Encouraged increased exercise (4) Morbid obesity: Code(s): E66.01 - Morbid (severe) obesity due to excess calories Category: Medical Plan: Morbid obesity and this is likely an underlying cause of his mildly elevated liver enzymes via fatty liver disease Encouraged weight loss Will try Mounjaro Patient also has sleep apnea and this is another indication for using a GLP 1 medicine for weight loss. (5) Sleep apnea: Code(s): G47.30 - Sleep apnea, unspecified Category: Medical Plan: As above Orders: Orders Comprehensive [place]. Panel Fast Today R74.8 - Abnormal levels of other serum enzymes, Z00.00 - Encounter for general adult medical examination without abnormal findings Lipid Panel Today Z00.00 - Encounter for general adult medical examination without abnormal findings TSH reflex Free T4 Today R79.89 - Other specified abnormal findings of blood chemistry, Z00.00 - Encounter for general adult medical examination without abnormal findings Medications: New tirzepatide (Mounjaro) for 4 weeks 2.5 mg (0.5 mL) subcut QWEEK 2 mL 3RF 28 days E66.01 - Morbid (severe) obesity due to excess calories, G47.30 - Sleep apnea, unspecified Refilled albuterol sulfate 90 mcg/actuation (ProAir HFA) 2 puffs inhalation Q4-6H PRN 8.5 grams 3RF shortness of breath or wheezing 30 days
[2024-10-03 16:30] VITALS: BP 118/72; PULSE 72; RESP 14; TEMP 37.1; O2SAT 97; BMI 44.9
== END 2024-10-03 17:05 | disposition home or self-care (01) ==
LOC: HO.HMCFM 16:20
PROVIDERS: PCP Family Medicine; Visit Provider Family Medicine
DX: I10 Essential (primary) hypertension (principal); R74.8 Abnormal levels of other serum enzymes; Z68.41 Body mass index [BMI] 40.0-44.9, adult; E66.01 Morbid (severe) obesity due to excess calories; E78.6 Lipoprotein deficiency; G47.30 Sleep apnea, unspecified

== ENCOUNTER 2024-10-04 13:29 | Outpatient (AMB) | payer OTHER, SELFPAY ==
--- OUTSIDE RECORDS SUMMARY | 2024-07-18 11:15 | XMS_ITS ---
Author Organization [facility] Address [address] [place] [address] Care Team Providers Care Leather Sorter Name Role Phone Garett ARNETT, Diego Primary Care Provider Henny Fierro Unavailable [phone] Medications Medication SIG (Take, Route, Fr equency, Duration) Notes Start Date End Date Status Fluoxetine Active hydroCHLOROthiazide Active Losartan Potassium A ctive LamISIL 250 MG 1 tablet Orally Once a day; Duration: 30 days Active Omeprazole Active Ketoconazole 2 % 1 application Galvanizing Pot Runner ally Once a day to both feet; Duration: 30 days 04/27/2024 Active Encounters Encounter Location Date Provider Diagnosis [address] [address] 07/18/2024 Henny Ballard Plan Of Treatment No Information Progress Notes * Ant MCDONALDDOB:1975 ( 48 yo M)Acc No.[id number]:07/18/2024 Progress Note Patient: Ant QUEZADA Provider: Janes Ballard DPM :1975 A ge:48 Y S ex:Male Date:07/18/2024 Address:[place] Pcp:Diego Bajwa MD Subjective: * Chief Complaints: [...] 07/18/2024 Generated for Lilly osullivan/Kendra/Joni on: 0 10/04/2024 02:19 PM EDT History and Physical Notes * HPI (History of Present Illness) Category Sub-Category Detail Notes Category Not es Skin problems Nature: scaling , redness Location: B/L Duration: , several months Treatments: medication ( Ketocon azole) Pt States PCP Visit: DATE: 03/16/2024
--- NOTE | 2024-10-04 13:32 | A.OFFVIS_ITS ---
Vital Signs 10/04/24 13:39 Height 5 ft 10 in Weight 313 lb BMI 44.9 BP 112/74 Blood Pressure Location Rt brachial Position Sitting Pulse 78 Pulse Source Pulse Oximeter Pulse Oximetry (%) 94 Oxygen Delivery Method Room Air Intake Visit Reasons: Rescreening, [place]/EGD, GERD hx. Intake Note: ESTABLISHED PATIENT for Rescreening, colo/egd. Pt spouse had surgery same day as his colo, had to r/s. Chief Complaint; C.O. intermittent difficulties with BMs. Pt reports that he often has trouble finding a balance between constipation and diarrhea. Still taking PPI without difficulty and is doing OK with GERD. 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 Accompanied by: Self / Same As Patient Allergies aspirin (ASPIRIN) Allergy (Severe, Verified 10/04/24 13:34) hives/throat swelling ibuprofen Allergy (Intermediate, Verified 10/04/24 13:34) hives naproxen (Aleve) Allergy (Intermediate, Verified 10/04/24 13:34) hives NSAIDS (Non-Steroidal Anti-Inflamma Allergy (Intermediate, Verified 10/04/24 13:34) Hives penicillin V Allergy (Intermediate, Verified 10/04/24 13:34) hives propranolol Allergy (Intermediate, Verified 10/04/24 13:34) erectile dysfunction HPI HPI Rescreening, [place]/EGD, GERD hx.: Details: LAST VISIT: GERD (gastroesophageal reflux disease) Screening for colon cancer Constipation Plan Patient denies any cardiac or respiratory symptoms.? Symptoms of acid reflux, patient takes omeprazole on as needed basis. Patient reports to be constipated. Patient states that he has been dealing with this for very long time food occasionally takes MiraLax or Dulcolax. Will send patient script for Dulcolax. History of sleep apnea, unable to tolerate CPAP. Denies any issues with anesthesia in the past.? No history infectious diseases in the past or present.? Not on any anticoagulation therapy.? No family or personal history of colon cancer or polyps.? Patient denies melena, hematochezia, unintentional weight loss or ribbon like stools.? Discussed at length the pre-procedure,? prep, diet & medications as well as what to expect prior, during and after the procedure.?? Stressed the importance of good bowel prep. ?Recommended the use of Vaseline or Calmoseptine OTC & baby wipes with bowel movements to promote comfort.? ?Patient verbalizes understanding and agrees to plan of care.? He was given the opportunity to ask questions and all questions answered.? We will see him after the procedure.? New bisacodyl (Dulcolax (bisacodyl)) 10 mg (2 x 5 mg) PO BEDTIME 180 tabs 4RF polyethylene glycol 3350 (Miralax) As directed by gastroenterology department at [facility] 238 grams PO ONCE 238 grams 0RF Z12.11 TODAY'S VISIT Patient is here today to discuss colonoscopy again. Patient was seen last March and was schedule for colonoscopy, however patient's had emergency heart surgery and he was unable to come to his colonoscopy appointment. Patient denies any changes since last visit. Denies any cardiac or respiratory symptoms. Denies any melena, hematochezia, unintentional weight loss or ribbon like stools. Patient denies any dyspepsia, dysphagia or odynophagia. Occasional acid reflux which is controled with omeprazole. Continues with occasional diarrhea and then constipation. [facility] Medical History Anxiety GERD (gastroesophageal reflux disease) Sleep apnea HTN (hypertension) Surgical History History of tonsillectomy and adenoidectomy History of tympanoplasty of left ear History of mastoidectomy Cholesteatoma of attic, right ear Family History Brother FHx: mental illness Social History Housing: House Alcohol intake: never Patient Tobacco Use Status: Current everyday Tobacco user Cigarettes Per Day: 7 e-Cigarette/Vaping Use: Never Used Second Hand Smoke Exposure: No service: No Current occupational status: employed Current occupational exposures/hazards: No Cognitive needs: No Hearing needs: No Vision needs: No Review of Systems Const Denies weight gain and Denies weight loss ENT Reports no additional complaints, Denies dysphagia and Denies odynophagia Card Reports no additional complaints Resp Reports no additional complaints GI Denies abdominal pain, Denies belching, Denies melena, Denies bloating, Denies change in bowel habits, Denies dysphagia, Denies excessive flatus, Denies dyspepsia, Denies heartburn, Denies diarrhea, Denies loose stools, Denies nausea, Denies odynophagia and Denies vomiting Reports no additional complaints Musc Reports no additional complaints Neuro Reports no additional complaints Psych Reports no additional complaints Endo Reports no additional complaints Physical Exam Vital Signs: Last Vital Signs Pulse 78 10/04/24 13:39 BP 112/74 10/04/24 13:39 Pulse Ox 94 10/04/24 13:39 Oxygen Delivery Method Room Air 10/04/24 13:39 BMI result Body Mass Index 44.9 Const General: healthy appearing and no acute distress Nutritional Appearance: well nourished and obese Orientation/consciousness: patient oriented x3 Resp Effort & Inspection: normal respiratory effort, able to speak in complete sentences, no tracheal deviation and symmetric chest movement Auscultation: clear to auscultation bilaterally Cardio Rate: regular rate GI Inspection: Yes normal to inspection and No distended Palpation (GI): Soft to palpation, not firm, nontender and No hepatosplenomegaly present Auscultation: normal bowel sounds General: Yes no CVA tenderness Back/Spine/Pelvis Back: no CVA tenderness Skin General skin exam: elasticity normal, turgor normal and dry skin Neuro General: patient oriented x3 Psych Appearance: grossly normal Mental Status: mental status grossly normal Assessment & Plan Assessment & Plan (1) GERD (gastroesophageal reflux disease): Code(s): K21.9 - Gastro-esophageal reflux disease without esophagitis Category: Medical Qualifiers: Esophagitis presence: esophagitis presence not specified Qualified Code(s): K21.9 - Gastro-esophageal reflux disease without esophagitis (2) Elevated liver enzymes: Code(s): R74.8 - Abnormal levels of other serum enzymes Category: Medical (3) Constipation: Code(s): K59.00 - Constipation, unspecified Category: Medical Qualifiers: Constipation type: slow transit constipation Qualified Code(s): K59.01 - Slow transit constipation (4) Screening for colon cancer: Code(s): Z12.11 - Encounter for screening for malignant neoplasm of colon Category: Medical Plan Patient will continue omeprazole. Avoid dietary triggers and late night snacking. Staying upright for minimal 3 hours after meals discussed with patient. Encouraged patient to try to lose weight, increase activity to promote better bowel motility. Patient can take Dulcolax daily. Take fiber daily to help him bulk stool. What to expect before during and after procedure discussed with patient. Stressed the importance of good bowel prep and clear liquid diet day before procedure. Patient will be going for upper endoscopy as well. I will see him after the procedure. Patient will call our office if you have any GI concerning symptoms. He is agreeable to this plan and verbalizes understanding of instructions. He was given the opportunity to ask questions and all questions answered. Thank you for allowing me to participate in his care Medications: New methylcellulose (laxative) (Citrucel) take it with full glass of water 500 mg PO DAILY 90 tabs 2RF K59.00 - Constipation, unspecified bisacodyl (Dulcolax (bisacodyl)) 10 mg (2 x 5 mg) PO BEDTIME 180 tabs 4RF polyethylene glycol 3350 (Miralax) As directed by gastroenterology department at [facility] 238 grams PO ONCE 238 grams 0RF Z12.11 - Encounter for screening for malignant neoplasm of colon Coding Level of Care Code Est Pt Level 4 (83271) Complex EM visit Add On G2211 Diagnoses Gastroesophageal reflux disease, unspecified whether esophagitis present K21.9 Esophagitis presence: esophagitis presence not specified Elevated liver enzymes R74.8 Slow transit constipation K59.01 Constipation type: slow transit constipation Screening for colon cancer Z12.11 Time Spent (min) 35 Comment 25 minutes spent with patient and additional 10 minutes spent reviewing his records
[2024-10-04 13:39] VITALS: BP 112/74; PULSE 78; O2SAT 94; BMI 44.9
== END 2024-10-04 14:05 | disposition home or self-care (01) ==
LOC: HO.HGI 13:30
PROVIDERS: PCP Family Medicine; Visit Provider Nurse Practitioner Family
DX: K21.9 Gastro-esophageal reflux disease without esophagitis (principal); R74.8 Abnormal levels of other serum enzymes; K59.01 Slow transit constipation
CPT/HCPCS: 99214; G2211